=== PATIENT | female | born 2000 | race Caucasian/White ===

== ENCOUNTER 2023-09-29 12:40 | Emergency (ER) | payer MEDICAID, SELFPAY ==
[2023-09-29] VITALS (9 sets, daily range): BP systolic 101–135; BP diastolic 63–92; PULSE 75–99; RESP 16–18; TEMP 36.7–36.9; O2SAT 97–100; BMI 38.2
--- NOTE | 2023-09-29 12:53 | PC.NURSE ---
Dr. Rodriguez at [facility] for pt eval
[2023-09-29] MEDS: ONDANSETRON 4MG ODT 4 MG SL (13:12)
--- NOTE | 2023-09-29 13:15 | HMH.EDGENADL ---
Discharge Plan Disposition Patient Disposition: Home, Self-Care Prescriptions Prescriptions: New ondansetron 4 mg tablet,disintegrating 4 mg PO Q6H PRN (Reason: nausea and vomiting) Qty: 10 0RF Referrals Follow up/Referrals: Michael Russ MD [Primary Care Provider] - See instructions Clinical Impressions Clinical Impression: Vomiting and diarrhea Instructions Patient Instructions: DI for Diarrhea and Traveler's Diarrhea -- Adult, DI for Diarrhea and Traveler's Diarrhea -- Child, DI for Nausea -- Adult, DI for Nausea -- Child Discharge ED Provider: Frankie Rodriguez General Adult HPI General Chief complaint: Nausea/Vomiting/Diarrhea Stated complaint: Vomiting, acid reflux, abd pain, emotional Time Seen by Provider: 09/29/23 12:51 Mode of Arrival: Ambulatory Source of Information: Patient Limitations: No Limitations Description of Symptoms (Recalled from ER Triage Doc. by RN): n/v/d since sunday History of Present Illness HPI narrative: 23-year-old female presenting with vomiting and diarrhea. This has been going on for a couple of days. No known sick contacts. Nonbloody vomiting or diarrhea. Has not had a full meal in approximately 72 hours. No abdominal pain, there is a chance she may be . Please note that above description of symptoms, in this electronic medical record under categorization of recalled from ER triage doctor by RN are reflective of an initial nursing assessment, however, is not reflective of my full history and physical exam that was personally taken and clarified. Consequentially, this preceding description of symptoms, which may include the patient's categorized chief complaint in the EMR, do not reflect my personal clinical impression, and the ultimate description of history of present illness and patient stated complaints should be deferred to this section of the note. Unless stated otherwise or congruent with this section of the note, additional signs, symptoms, or incongruence should be interpreted as inaccurate with my clinical impression. Related Data Previous Rx's Medication Instructions Recorded ondansetron 4 mg disintegrating 4 mg PO Q6H PRN nausea and 09/29/23 tablet vomiting #10 tabs Allergies Allergy/AdvReac Type Severity Reaction Status Date / Time sulfamethoxazole Allergy Verified 09/29/23 13:11 [From Bactrim] trimethoprim [From Bactrim] Allergy Verified 09/29/23 13:[address] [facility] Disclaimer: The information contained in this section may have been updated after the patient was seen, as this information can be updated by other users. Social History Smoking Status: Never smoker alcohol intake: never current occupational status: employed Travel in the last 8 weeks: None ROS Obtained: Yes All systems reviewed & no additional complaints except as documented Physical Exam General General appearance: alert and in no apparent distress Head Head exam: atraumatic and normocephalic Eye Eye exam: Present normal appearance, PERRL and EOMI ENT ENT exam: Present mucous membranes moist Neck Neck exam: Present normal inspection, full ROM and trachea midline Respiratory Respiratory exam: Absent respiratory distress, wheezes, stridor, accessory muscle use or prolonged expiratory phase Cardiovascular Cardiovascular exam: Present normal rhythm Abdominal Exam Abdominal exam: Present soft; Absent distention, tenderness, guarding, rebound or rigidity Extremities Exam Extremities exam: Absent edema Neurological Exam Neurological exam: Present alert, oriented X3, CN II-XII intact and normal gait; Absent motor sensory deficit Skin Skin exam: Present warm and dry; Absent diaphoresis or erythema Medical Decision Making Medical Records Medical records reviewed: Yes I reviewed the patient's medical records. Kenn Inquiry Pt receiving controlled substance: No Kenn was queried for this patient: No Vital Signs: 09/29/23 12:43 09/29/23 13:11 09/29/23 13:30 Temperature 98.5 F Temperature Source Oral Pulse Rate 78 Pulse Rate [Left] 99 H Respiratory Rate 16 16 Blood Pressure 121/81 116/80 Blood Pressure [Left Arm] 122/81 Blood Pressure Mean 88 92 Blood Pressure Mean [Left Arm] 94 02 Sat by Pulse Oximetry 97 99 Oxygen Delivery Method Room Air 09/29/23 14:00 Temperature Temperature Source Pulse Rate 82 Pulse Rate [Left] Respiratory Rate 16 Blood Pressure 110/82 Blood Pressure [Left Arm] Blood Pressure Mean 88 Blood Pressure Mean [Left Arm] 02 Sat by Pulse Oximetry 98 Oxygen Delivery Method Lab Data Lab Results 09/29/23 13:00: Urine Color Yellow, Urine Appearance Clear, Urine pH 5.5, Ur Specific [place] >= 1.030, Urine Protein Negative, Urine Glucose (UA) Negative, Urine Ketones Negative, Urine Blood 2+, Urine Nitrate Negative, Urine Bilirubin Negative, Urine Urobilinogen 0.2, Ur Leukocyte Esterase Negative, Urine RBC 3-5, Urine WBC Occasional, Ur Squamous Epith Cells Occasional, Urine Bacteria Trace, Urine HCG, Qual Negative Orders (Tests/Meds): ED MEDICATIONS Discontinued Medications Generic Name Dose Route Start Last Admin Trade Name Juan Carlos PRN Reason Stop Dose Admin Ondansetron HCl 4 mg 09/29/23 12:51 09/29/23 13:12 Ondansetron 4mg Odt SL 09/29/23 12:52 4 mg ONCE ONE Administration ORDERS Category Date Time Status UA [Urinalysis and Microscopic] Stat Lab 09/29/23 13:00 Completed Urine , HCG Qual. Stat Lab 09/29/23 13:00 Completed Medical Decision Narrative: 23-year-old female presenting with vomiting and diarrhea. This has been going on for a couple of days. No known sick contacts. Nonbloody vomiting or diarrhea. Has not had a full meal in approximately 72 hours. No abdominal pain, there is a chance she may be . History was obtained via conversation with patient. On arrival, patient hemodynamically stable, alert, oriented x4, appropriate, GCS 15, moving all extremities spontaneously, pupils equal and reactive to light. Full physical exam performed and significant for well-appearing female no acute distress. Nonactionable physical exam overall, see above. Differential includes , gastritis, enteritis, gastroenteritis, among others Patient was given Zofran and p.o. challenge for symptomatic management and correction of underlying abnormalities. Workup independently interpreted and significant for negative UA, negative urine . On reevaluation, patient able to tolerate p.o. intake without issue. Given patient's history, physical exam, very well appearance, this most likely represents acute gastroenteritis. Because patient at baseline without signs or symptoms of clinical decompensation, deemed appropriate for discharge. Results were relayed to patient who voiced understanding and were agreeable to outpatient management and follow up. I discussed my clinical impression with patient and answered all questions. At this time, the evidence for any other entities in the differential is insufficient to warrant any further testing or ED observation. This was explained as well. Advisory was given that persistent or worsening symptoms require further evaluation. I confirmed the understanding of this discussion. Armament Mechanic disclaimer Much of this encounter note is an electronic enterprise systems manager spoken language to printed text. Electronic enterprise systems manager of the spoken language may permit errors. Although I have reviewed the note, some errors may still exist. Critical Care Critical Care Time Critical Care Time: No
[2023-09-29 13:22] LABS: Microscopic, Urine URINE MICROSCOPIC (MICROSCOPIC)
[2023-09-29 13:23] LABS: Appearance,Urine CLEAR (Clear); Bilirubin,Urine Negative (Negative); Blood, Urine 2+ (Negative); Color,Urine YELLOW (Yellow); Glucose,Urine (UA) Negative (Negative); Ketones,Urine Negative (Negative); Leukocyte Esterase,Urine Negative (Negative); Nitrate,Urine Negative (Negative); PH,Urine 5.5 (5.0-8.5); Protein,Urine Negative (Negative); Specific Gravity, Urine >= 1.030 (1.005-1.030); Urobilinogen,Urine 0.2 EU/dl (0.2)
[2023-09-29 13:25] LABS: Urine Pregnancy, HCG Qual. Negative (Negative)
[2023-09-29 13:41] LABS: Bacteria,Urine Trace /lpf; Squamous Epithelial Cell,Urine Occasional #/hpf (0-5); WBC,Urine Occasional #/hpf (0-3)
[2023-09-29] MEDS: PROMETHAZINE HCL 25MG/ML 1ML VIAL 25 MG IV (15:38)
[2023-09-29] MEDS: LACTATED RINGERS 1000ML 1,000 ML 999 ML IV (15:38)
[2023-09-29] MEDS: SODIUM CHLORIDE 0.9% 25ML BAG 25 ML IV (15:38)
--- NOTE | 2023-09-29 16:36 | PC.NURSE ---
PT HAD A PO CHALLENGE WITH NO PROBLEMS
== END 2023-09-29 16:41 | disposition home or self-care (01) ==
PROVIDERS: Emergency Medicine; Emergency Provider Emergency Medicine; PCP Family Medicine
DX: R11.2 Nausea with vomiting, unspecified; R19.7 Diarrhea, unspecified
CPT/HCPCS: 81001; 81025; 96361; 96374; 99284

== ENCOUNTER 2024-02-03 11:36 | Emergency (ER) | payer MEDICAID, SELFPAY ==
[2024-02-03 11:36] VITALS: BP 151/91; PULSE 101; RESP 18; TEMP 36.7; O2SAT 99; BMI 41.5
[2024-02-03] MEDS: predniSONE 20MG TAB 50 MG PO (11:57)
[2024-02-03] MEDS: diphenhydrAMINE 50MG CAPSULE 50 MG PO (11:57)
[2024-02-03] MEDS: PANTOPRAZOLE 40MG TABLET 40 MG PO (11:58)
[2024-02-03 12:27] VITALS: BP 126/76; PULSE 80; RESP 16; O2SAT 99
--- NOTE | 2024-02-03 12:42 | HMH.EDGENADL ---
Discharge Plan Disposition Patient Disposition: Home, Self-Care Prescriptions Prescriptions: New prednisone 50 mg tablet 50 mg PO DAILY 3 Days Qty: 3 0RF epinephrine 0.3 mg/0.3 mL auto-injector 0.3 mg IM Q10M PRN (Reason: anaphylaxis) Qty: 2 0RF Rx Instructions: for 2 doses No Action promethazine 25 mg tablet 25 mg PO TID PRN (Reason: nausea and vomiting) Qty: 12 0RF Referrals Follow up/Referrals: Provider,Referral, MD [Primary Care Provider] - See instructions Activity Restrictions/Add. Instructions Additional Instructions/Restrictions: At this time it was felt you are safe to be discharged home. If new or worsening symptoms please do not hesitate to return the emergency department. Please take your medications as prescribed. If your airway is closing use your EpiPen. Clinical Impressions Clinical Impression: Allergic reaction Print Language Print Language: Persian Discharge ED Provider: Shaquille Macedo General Adult HPI General Chief complaint: Allergic Reaction Stated complaint: allergic reaction Time Seen by Provider: 02/03/24 11:50 Mode of Arrival: Ambulatory Source of Information: Patient Limitations: No Limitations Description of Symptoms (Recalled from ER Triage Doc. by RN): PT REPORTS ALLERGIC REACTION TO CINNAMON. REPORTS THROAT ITCHY. NO RESPIRATORY DISTRESS. 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 Patient has had an itchy throat and she was exposed to cinnamon at 5 this morning when she was on her way into work. There is associated shortness of breath. No other acute complaints at this time. Related Data Previous Rx's ?Medication ?Instructions ?Recorded promethazine 25 mg tablet 25 mg PO TID PRN nausea and 09/29/23 vomiting #12 tabs epinephrine 0.3 mg/0.3 mL 0.3 mg (0.3 mL) IM Q10M PRN 02/03/24 injection, auto-injector anaphylaxis #2 ea prednisone 50 mg tablet 50 mg PO DAILY 3 days #3 tabs 02/03/24 Allergies Allergy/AdvReac Type Severity Reaction Status Date / Time cinnamon Allergy Anaphylaxis Verified 02/03/24 11:57 raspberry Allergy Anaphylaxis Verified 02/03/24 11:57 sulfamethoxazole Allergy Unknown Verified 02/03/24 11:57 [From Bactrim] allergy reaction trimethoprim [From Bactrim] Allergy Unknown Verified 02/03/24 11:57 allergy reaction PFSH [facility] Disclaimer: The information contained in this section may have been updated after the patient was seen, as this information can be updated by other users. Social History (Updated 09/29/23 @ 15:09 by Frankie Rodriguez MD) Smoking Status: Never smoker alcohol intake: never current occupational status: employed Travel in the last 8 weeks: None ROS Obtained: Yes Systems reviewed as appropriate & no additional complaints except as documented Physical Exam General General appearance: alert and in no apparent distress Head Head exam: atraumatic and normocephalic Eye Eye exam: Present PERRL ENT ENT exam: Present mucous membranes moist Neck Neck exam: Present normal inspection Chest Chest inspection: Present normal inspection and symmetric chest wall rise Respiratory Respiratory exam: Present normal lung sounds bilaterally; Absent respiratory distress or wheezes Cardiovascular Cardiovascular exam: Present regular rate and normal rhythm Abdominal Exam Abdominal exam: Present soft Extremities Exam Extremities exam: Present normal inspection Neurological Exam Neurological exam: Present alert Psychiatric Psychiatric exam: Present normal affect Skin Skin exam: Present warm and dry; Absent rash Medical Decision Making Medical Records Screening: Per USPSTF and CDC recommendations, given the prevalence of disease in our region, it is our hospital?s policy to screen for HIV and viral Hepatitis for all patients aged 18 and over and those with ongoing risk factors. Kenn Inquiry Pt receiving controlled substance: No Vital Signs: 02/03/24 11:36 02/03/24 12:27 Temperature 98.0 F Temperature Source Oral Pulse Rate 80 Pulse Rate [Radial] 101 H Respiratory Rate 18 16 Blood Pressure 126/76 Blood Pressure [Left Arm] 151/91 H Blood Pressure Mean [Left Arm] 111 Blood Pressure Source Automatic Cuff Blood Pressure Source [Left Arm] Automatic Cuff Blood Pressure Position Supine Blood Pressure Position [Left Arm] Sitting 02 Sat by Pulse Oximetry 99 99 Oxygen Delivery Method Room Air Room Air Orders (Tests/Meds): ED MEDICATIONS Discontinued Medications Generic Name Dose Route Start Last Admin Trade Name Freq PRN Reason Stop Dose Admin Diphenhydramine HCl 50 mg 02/03/24 11:53 02/03/24 11:57 Diphenhydramine 50mg Capsule PO 02/03/24 11:54 50 mg ONCE ONE Administration Pantoprazole Sodium 40 mg 02/03/24 11:53 02/03/24 11:58 Pantoprazole 40mg Tablet PO 02/03/24 11:54 40 mg ONCE ONE Administration Prednisone 50 mg 02/03/24 11:53 02/03/24 11:57 Prednisone 20mg Tab PO 02/03/24 11:54 50 mg ONCE ONE Administration Medical Decision Narrative: In summary patient is a previous healthy 19-year-old with allergy to cinnamon presents emergency department for symptoms related cinnamon exposure. Patient does not meet criteria for anaphylaxis upon arrival, she does not have rash, no wheezing. She has an itchy throat which may be reflective of mild allergic reaction. Given this patient will be given pantoprazole, prednisone, diphenhydramine. The patient was placed in observation status at 1213. Medical necessity for observational status is serial physical exams. The patient was provided serial reevaluations while awaiting results. Results of observation remarkable for no progressive symptoms. Given this I feel the patient is appropriate for outpatient management at this time will be discharged with a course of steroids and EpiPen in case anaphylaxis were to present with a worsening reaction in the future to exposure to sentiment. Total time in observation 30 minutes. Critical Care Critical Care Time Critical Care Time: No
[2024-02-03 12:44] VITALS: BP 132/74; PULSE 68; RESP 18; TEMP 36.9; O2SAT 99
== END 2024-02-03 12:47 | disposition home or self-care (01) ==
PROVIDERS: Emergency Provider Emergency Medicine
DX: T78.1XXA Other adverse food reactions, not elsewhere classified, initial encounter (principal); R06.02 Shortness of breath
CPT/HCPCS: 99285

== ENCOUNTER 2024-04-06 20:00 | Emergency (ER) | payer MEDICAID, SELFPAY ==
[2024-04-06 20:02] VITALS: BP 147/99; PULSE 100; RESP 18; TEMP 36.6; O2SAT 100; BMI 34.9
--- OUTSIDE RECORDS SUMMARY | 2024-04-06 20:14 | XMS_ITS | Encounter Summary ---
Author Organization [facility] nter Address [address] [place] [address] [facility] [place] [address] Care Team Providers Care Nursing Education Specialist Name Role Phone Robles House MD Primary Care Provider [phone] Encounter Details Date Type Department Care Team (Latest Contact Info) Description 12/02/2018 12:18 PM EDT - 12/02/2018 11:59 PM EDT Hospital Encounter [facility] CON[facility] OUTPATIENT [address] [place] [address] Robles House MD [address] [facility] [place] [address] Procedure and treatment not carried out, unspecified reason Discharge Disposition: Home or Self Care Social History Tobacco Use Types Packs/Day Years Used Date Smoking Tobacco: Never Assessed Sex and Gender Information Value Date Recorded Sex Assigned at Female 07/20/2021 10:53 AM EST Gender Identity Not on file Sexual Orientation Not on file documented as of this encounter Plan of Treatment Not on file documented as of this encounter Visit Diagnoses Diagnosis Procedure and treatment not carried out, unspecified reason documented in this encounter Care Teams Nursing Education Specialist Relationship Specialty Start Date End Date Robles House MD [address] [place] [address] PCP - General 01/18/22 documented as of this encounter
--- OUTSIDE RECORDS SUMMARY | 2024-04-06 20:14 | XMS_ITS | Encounter Summary ---
Author Organization [facility] nter Address [address] [place] [address] Care Team Providers Care Drop Wire Builder Name Role Phone Robles House MD Primary Care Provider [phone] Encounter Details Date Type Department Care Team (Latest Contact Info) Description 12/02/2018 12:23 PM EDT - 12/02/2018 11:59 PM EDT Hospital Encounter [facility] CONVERSION OUTPATIENT [address] [place] [address] Robles House MD [address] [place] [address] Other fatigue Discharge Disposition: Home or Self Care Social History Tobacco Use Types Packs/Day Years Used Date Smoking Tobacco: Never Assessed Sex and Gender Information Value Date Recorded Sex Assigned at Female 07/20/2021 10:53 AM EST Gender Identity Not on file Sexual Orientation Not on file documented as of this encounter Plan of Treatment Not on file documented as of this encounter Procedures Procedure Name Priority Date/Time Associated Diagnosis Comments TSH Routine 12/02/2018 12:40 PM EDT T4 Routine 12/02/2018 12:40 PM EDT SCANNED LAB RESULT 12/02/2018 documented in this encounter Results * TSH (12/02/2018 12:40 PM EDT) TSH 1.630 0.463 - 3.980 ulU/ml 12/02/2018 7:57 PM EDT [facility] 12/02/2018 12:4 0 PM EDT 12/02/2018 6:32 PM EDT Robles House MD LAB BLOOD ORDERABLES Performing Organization Address City/[facility]/ZIP Co de Phone Number [facility] [address] [place] [address], * (ABNORMAL) T4 (12/02/2018 12:40 PM EDT) T4, Total 11.7(H) 6.0 - 11.6 ug/dL 12/02/2018 7:57 PM EDT [facility] 12/02/2018 12:4 0 PM EDT 12/02/2018 6:32 PM EDT Robles House MD LAB BLOOD ORDERABLES Performing Organization Address [facility] Co de Phone Number [facility] [address] [place] [address], * SCANNED LAB RESULT (12/02/2018) Narrative 12/02/2018 Ordered by an unspecified provider. Default Authenticator Stefano LAB BLOOD ORDE RABLATASHA documented in this encounter Visit Diagnoses Diagnosis Other fatigue documented in this encounter Care Teams Drop Wire Builder Relationship Specialty Start Date End Date Robles House MD [address] [place] [id number] PCP - General 01/18/22 documented as of this encounter
--- OUTSIDE RECORDS SUMMARY | 2024-04-06 20:14 | XMS_ITS | Encounter Summary ---
Author Organization [facility] nter Address [address] [place] [id number] [place] [address] Care Team Providers Care Clinical Coordinator Name Role Phone Robles House MD Primary Care Provider [phone] Encounter Details Date Type Department Care Team (Latest Contact Info) Description 10/07/2018 2:44 PM EDT - 10/07/2018 11:59 PM EDT Hospital Encounter [facility] CONVERSION OUTPATIENT [address] [place] [address] Robles House MD [address] [place] [address] Unspecified abdominal pain Discharge Disposition: Home or Self Care Social [...] Procedure Name Priority Date/Time Associated Diagnosis Comments SCANNED LAB RESULT 10/07/2018 documented in this encounter Results * SCANNED LAB RESULT (10/07/2018) Narrative 10/07/2018 Ordered by an unspecified provider. Default Authenticator Stefano LAB BLOOD ORDNatalie HARRELL documented in this encounter Visit Diagnoses Diagnosis Unspecified abdominal pain documented in this encounter Care Teams Clinical Coordinator Relationship Specialty Start Date End Date Robles House MD [address] [place] [phone] PCP - General 01/18/22 documented as of this encounter
--- OUTSIDE RECORDS SUMMARY | 2024-04-06 20:14 | XMS_ITS | Encounter Summary ---
Author Organization [facility] nter Address [address] [place] [address] Care Team Providers Care Pocket Creaser Name Role Phone Robles House MD Primary Care Provider [phone] Encounter Details Date Type Department Care Team (Late st Contact Info) Description 05/01/2018 12:01 AM EST - 05/01/2018 11:59 PM EST Hospital Encounter [facility] CONVERSION OUTPATIENT [address] [place] [address] Aditya Sevilla MD [facility] [address] [place] [address] Social History Tobacco Use Types Packs/Day Years Used Date Smoking Tobacco: Never Assessed Sex and Gender Information Value Date Recorded Sex Assigned at Female 07/20/2021 10:53 AM EST Gender Identity Not on file Sexual Orientation Not on file documented as of this encounter Plan of Treatment Not on file documented as of this encounter Procedures Procedure Name Priority Date/Time Associated Diagnosis Comments NM HEPATOBILIARY W CHOLECYSTOKININ Routine 05/01/2018 1:37 PM EST documented in this encounter Results * NM hepatobiliary w cholecystokinin (05/01/2018 1:37 PM EST) Anatomical Region Laterality Modality Body Nuclear Medicine 05/01/2018 1:37 PM EST Narrative 05/01/2018 4:08 PM EST PROCEDURE: NM CCK HEPATOBILIARY SCAN: 05/01/2018 CLINICAL INFORMATION: abdominal pain COMPARISON: CT abdomen and pelvis 04/27/2018, gallbladder ultrasound 04/27/2018. Multiple anterior projections of the abdomen were obtained after administration of 4.7 mCi technetium 99m labeled mebrofenin. ??Additional images were obtained after one Ensure for calculation of gallbladder ejection fraction. Prompt hepatic uptake of radiotracer from the blood pool. There is radiotracer activity noted within the biliary system on 5 minute imaging. There is radiotracer activity noted within the gallbladder on 10 minute imaging. There is radiotracer progressed into small bowel on 20 minute imaging. There is progressive clearance of radiotracer from hepatic parenchyma throughout exam. ??Gallbladder ejection fraction calculated at 77%. Impression: 1. No evidence of acute cholecystitis. 2. Gallbladder ejection fraction calculated at 77%. Procedure Note Patel Hopkins MD - 07/29/2021 PROCEDURE: NM CCK HEPATOBILIARY SCAN: 05/01/2018 CLINICAL INFORMATION: abdominal pain COMPARISON: CT abdomen and pelvis 04/27/2018, gallbladder [id number]/15/[id number]. Multiple anterior projections of the abdomen were obtained afteradministration of 4.7 mCi technetium 99m labeled mebrofenin. Additional images were obtained after one Ensure for calculation ofgallbladder ejection fraction. Prompt hepatic uptake of radiotracer from the blood pool. There isradiotracer activity noted within the biliary system on 5 minute imaging.There is radiotracer activity noted within the gallbladder on 10 minuteimaging. There is radiotracer progressed into small bowel on 20 minuteimaging. There is progressive clearance of radiotracer from hepaticparenchyma throughout exam. Gallbladder ejection fraction calculated at 77%. Impression: 1. No evidence of acute cholecystitis. 2. Gallbladder ejection fraction calculated at 77%. Aditya Sevilla MD IMG NM PROCEDURES documented in this encounter Visit Diagnoses Not on filedocumented in this encounter Care Teams Pocket Creaser Relationship Specialty Start Date End Date Robles House MD [address] [place] [phone] PCP - General 01/18/22 documented as of this encounter
--- OUTSIDE RECORDS SUMMARY | 2024-04-06 20:14 | XMS_ITS | Encounter Summary ---
Author Organization [facility] nter Address [address] [place] [id number] [place] [address] Care Team Providers Care Three Knife Trimmer Name Role Phone Robles House MD Primary Care Provider [phone] Encounter Details Date Type Department Care Team (Latest Contact Info) Description 08/30/2018 4:13 PM EDT - 08/30/2018 11:59 PM EDT Hospital Encounter [facility] CONVERSION OUTPATIENT [address] [place] [address] Fortino Cisneros, DO [address] [place] [phone] Urinary tract infection, site not specified; Nausea Discharge Disposition: Home or Self Care Social History Tobacco Use Types Packs/Day Years Used Date Smoking Tobacco: Never Assessed Sex and Gender Information Value Date Recorded Sex Assigned at Female 07/20/2021 10:53 AM EST Gender Identity Not on file Sexual Orientation Not on file documented as of this encounter Plan of Treatment Not on file documented as of this encounter Visit Diagnoses Diagnosis Urinary tract infection, site not specified Nausea Nausea alone documented in this encounter Care Teams Three Knife Trimmer Relationship Specialty Start Date End Date Robles House MD [address] [place] [address] PCP - General 01/18/22 documented as of this encounter
--- OUTSIDE RECORDS SUMMARY | 2024-04-06 20:14 | XMS_ITS | Encounter Summary ---
Author Organization [facility] nter Address [address] [place], [place] [id number] [place] [address] Care Team Providers Care Road Maker Name Role Phone Robles House MD Primary Care Provider Encounter Details Date Type Department Care Team (Latest Contact Info) Description 05/13/2018 5:14 PM EST - 05/13/2018 11:59 PM EST Hospital Encounter [facility] CONVERSION OUTPATIENT [address] [place] [id number] Jason Moreno DO [address] [facility] [place] [address] Cellulitis of right external ear Discharge Disposition: Home or Self Care Social History Tobacco Use Types Packs/Day Years Used Date Smoking Tobacco: Never Assessed Sex and Gender Information Value Date Recorded Sex Assigned at Female 07/20/2021 10:53 AM EST Gender Identity Not on file Sexual Orientation Not on file documented as of this encounter Plan of Treatment Not on file documented as of this encounter Visit Diagnoses Diagnosis Cellulitis of right external ear documented in this encounter Care Teams Road Maker Relationship Specialty Start Date End Date Robles Houes MD [address] [place] [address] PCP - General 01/18/22 documented as of this encounter
--- OUTSIDE RECORDS SUMMARY | 2024-04-06 20:14 | XMS_ITS | Encounter Summary ---
Author Organization [facility] nter Address [address] [place] [address] Care Team Providers Care Product Manager Medical Device Name Role Phone Robles House MD Primary Care Provider [phone] Encounter Details Date Type Department Care Team (Late st Contact Info) Description 10/08/2018 8:42 AM EDT - 10/08/2018 11:59 PM EDT Hospital Encounter PMC CONVERSION OUTPATIENT [address] [place] [address] Gertrude Pozo DO [address] [place] [address] Robles House MD [address] [place] [address] Social History Tobacco Use Types Packs/Day Years Used Date Smoking Tobacco: Never Assessed Sex and Gender Information Value Date Recorded Sex Assigned at Female 07/20/2021 10:53 AM EST Gender Identity Not on file Sexual Orientation Not on file documented as of this encounter Plan of Treatment Not on file documented as of this encounter Procedures Procedure Name Priority Date/Time Associated Diagnosis Comments CBC WITH AUTO DIFFERENTIAL Routine 10/08/2018 8:59 AM EDT VITAMIN D, TOTAL Routine 10/08/2018 8:59 AM EDT URINALYSIS WITH MICROSCOPIC Routine 10/08/2018 8:59 AM EDT URINE CULTURE Routine 10/08/2018 8:59 AM EDT TSH Routine 10/08/2018 8:59 AM EDT T4 Routine 10/08/2018 8:59 AM EDT VITAMIN B12 Routine 10/08/2018 8:59 AM EDT COMPREHENSIVE METABOLIC PANEL Routine 10/08/2018 8:59 AM EDT SCANNED LAB RESULT 10/08/2018 SCANNED LAB RESULT 10/08/2018 SCANNED LAB RESULT 10/08/2018 SCANNED LAB RESULT 10/08/2018 documented in this encounter Results * Urine culture (10/08/2018 8:59 AM EDT) Urine Culture FINAL >100,000 CFU/ML OF MIXED SKIN LEIDA 10/10/2018 7:25 AM EDT [facility] 10/08/2018 8:59 AM EDT 10/08/2018 9:33 AM EDT Gertrude Pozo DO LAB MICROBIOLOGY - GENERAL ORDERABLES Performing Organization Address City/State/[facility] Co de Phone Number [facility] [address] * (ABNORMAL) Urinalysis with microscopic (10/08/2018 8:59 AM EDT) RBC, Urine 4 0 - 4 /hpf 10/08/2018 9:31 AM EDT [facility] WBC, Urine 2 0 - 5 /hpf 10/08/2018 9:31 AM EDT [facility] Squamous Epithelial, Urine 5 0 - 6 /hpf 10/08/2018 9:31 AM EDT [facility] Bacteria, Urine NEGATIVE /hpf 10/08/2018 9:31 AM EDT [facility] Hyaline Casts, Urine 1 0 - 4 /lpf 10/08/2018 9:31 AM EDT [facility] Color, Urine YELLOW 10/08/2018 9:31 AM EDT [facility] Clarity, Urine CLEAR 10/08/2018 9:31 AM [facility] Glucose, Urine NEGATIVE mg/dL 10/08/2018 9:31 AM [facility] Bilirubin, Urine NEGATIVE 10/08/2018 9:31 AM [facility] Specific [place] [employer], Urine 1.022 1.006 - 1.035 10/08/2018 9:31 AM [facility] Blood, Urine NEGATIVE 10/08/2018 9:31 AM [facility] pH, Urine 5.0 5.0 - 9.0 10/08/2018 9:31 AM [facility] Protein, Urine NEGATIVE mg/dL 10/08/2018 9:31 AM [facility] Urobilinogen, Urine 0.2 E.U./DL 10/08/2018 9:31 AM [facility] Nitrite, Urine NEGATIVE 10/08/2018 9:31 AM [facility] Leukocytes, Urine TRACE(A) 10/08/2018 9:31 AM [facility] 10/08/2018 8:59 AM EDT 10/08/2018 9:17 AM EDT Gertrude Pozo DO LAB URINE ORDERABL ES [facility] [address] * CBC auto differential (10/08/2018 8:59 AM EDT) Platelets 376 122 - 454 K/ul 10/08/2018 9:38 AM [facility] RBC 4.480 3.450 - 5.400 M/ul 10/08/2018 9:38 AM [facility] MCV 90.8 78.2 - 101.8 fl 10/08/2018 9:38 AM [facility] MCH 30.3 26.4 - 33.3 pg 10/08/2018 9:38 AM [facility] MCHC 33.3 32.5 - 35.3 g/dL 10/08/2018 9:38 AM [facility] RDW 12.9 10.1 - 16.2 % 10/08/2018 9:38 AM [facility] MPV 8.4 6.4 - 10.4 fl 10/08/2018 9:38 AM [facility] Neutrophils % 56.4 43.0 - 83.0 % 10/08/2018 9:38 AM [facility] Neutrophils Absolute 5.4 2.7 - 6.9 K/ul 10/08/2018 9:38 AM [facility] Auto WBC 9.50 3.00 - 11.30 K/ul 10/08/2018 9:38 AM [facility] nRBC 0.00 10/08/2018 9:38 AM [facility] Basophils % 0.7 0.0 - 2.0 % 10/08/2018 9:38 AM [facility] Basophils Absolute 0.1 0.0 - 0.2 K/ul 10/08/2018 9:38 AM [facility] Eosinophils % 4.3 0.0 - 9.0 % 10/08/2018 9:38 AM [facility] Eosinophils Absolute 0.4 0.0 - 0.9 K/ul 10/08/2018 9:38 AM [facility] Lymphocytes % 32.7 10.0 - 42.0 % 10/08/2018 9:38 AM [facility] Lymphocytes Absolute 3.1 0.4 - 3.9 K/ul 10/08/2018 9:38 AM [facility] Monocytes % 5.9 1.0 - 14.0 % 10/08/2018 9:38 AM [facility] Monocytes Absolute 0.6 0.2 - 0.9 K/ul 10/08/2018 9:38 AM [facility] Hematocrit 40.7 29.9 - 45.5 % 10/08/2018 9:38 AM [facility] Hemoglobin 13.6 10.0 - 16.0 gm/dl 10/08/2018 9:38 AM [facility] 10/08/2018 8:59 AM EDT 10/08/2018 9:22 AM EDT Robles House MD LAB BLOOD ORDERABLES [facility] [address] * Vitamin B12 (10/08/2018 8:59 AM EDT) Vitamin B-12 503 254 - 1,320 pg/mL 10/08/2018 10:16 AM EDT [facility] 10/08/2018 8:59 AM EDT 10/08/2018 9:21 AM EDT Robles House MD LAB BLOOD ORDERABLES Performing Organization Address [facility] Phone Number [facility] [address] [place] [address], * (ABNORMAL) TSH (10/08/2018 8:59 AM EDT) TSH 4.130(H) 0.463 - 3.980 ulU/ml 10/08/2018 10:16 AM EDT [facility] 10/08/2018 8:59 AM EDT 10/08/2018 9:21 AM EDT Robles House MD LAB BLOOD ORDERABLES Performing Organization Address [facility] Phone [facility] [place] [address], * (ABNORMAL) T4 (10/08/2018 8:59 AM EDT) T4, Total 12.3(H) 6.0 - 11.6 ug/dL 10/08/2018 10:16 AM EDT [facility] 10/08/2018 8:59 AM EDT 10/08/2018 9:21 AM EDT Robles House MD LAB BLOOD ORDERABLES Performing Organization Address [facility] Phone Number [facility] [address] [place] [address], * (ABNORMAL) Vitamin D 25 hydroxy (10/08/2018 8:59 AM EDT) VITAMIN D, 25-HYDROXY 16.8(L) 30.0 - 100.0 ng/mL 10/08/2018 10:38 AM EDT [facility] 10/08/2018 8:59 AM EDT 10/08/2018 9:21 AM EDT Robles House MD LAB BLOOD ORDERABLES [facility] [address] * Comprehensive metabolic panel (10/08/2018 8:59 AM EDT) Globulin, Total 3.9 2.4 - 4.8 g/dL 10/08/2018 10:16 AM [facility] A/G Ratio 1.0 0.6 - 1.6 10/08/2018 10:16 AM [facility] Calcium 8.9 8.5 - 10.1 MG/DL 10/08/2018 10:16 AM [facility] Chloride 104 98 - 107 mmol/L 10/08/2018 10:16 AM [facility] CO2 27 21 - 32 mmol/L 10/08/2018 10:16 AM [facility] Creatinine 0.80 0.60 - 1.30 MG/DL 10/08/2018 10:16 AM [facility] Potassium 4.0 3.6 - 5.2 mmol/L 10/08/2018 10:16 AM [facility] Sodium 139 133 - 144 mmol/L 10/08/2018 10:16 AM [facility] Albumin 3.9 3.4 - 5.0 g/dL 10/08/2018 10:16 AM [facility] Alkaline Phosphatase 72 45 - 117 U/L 10/08/2018 10:16 AM [facility] Total Bilirubin 0.30 0.00 - 1.00 MG/DL 10/08/2018 10:16 AM [facility] ALT (SGPT) 58 12 - 78 U/L 10/08/2018 10:16 AM [facility] Total Protein 7.8 6.4 - 8.4 g/dL 10/08/2018 10:16 AM [facility] AST 23 15 - 37 U/L 10/08/2018 10:16 AM [facility] BUN 10 7 - 18 MG/DL 10/08/2018 10:16 AM [facility] Glucose 101 70 - 110 MG/DL 10/08/2018 10:16 AM [facility] 10/08/2018 8:59 AM EDT 10/08/2018 9:21 AM EDT Robles House MD LAB BLOOD ORDERABLES [facility] [address] * SCANNED LAB RESULT (10/08/2018) Narrative 10/08/2018 Ordered by an unspecified provider. Default Authenticator Stefano LAB BLOOD ORDE RABLES * SCANNED LAB RESULT (10/08/2018) Narrative 10/08/2018 Ordered by an unspecified provider. Default Authenticator Stefano LAB BLOOD ORDE RABLES * SCANNED LAB RESULT (10/08/2018) Narrative 10/08/2018 Ordered by an unspecified provider. Default Authenticator Stefano LAB BLOOD ORDE RABLES * SCANNED LAB RESULT (10/08/2018) Narrative 10/08/2018 Ordered by an unspecified provider. Default Authenticator Stefano LAB BLOOD ORDE RABLES documented in this encounter Visit Diagnoses Not on filedocumented in this encounter Care Teams Product Manager Medical Device Relationship Specialty Start Date End Date Robles House MD [address] [place] [address] [place] [address] PCP - General 01/18/22 documented as of this encounter
--- OUTSIDE RECORDS SUMMARY | 2024-04-06 20:14 | XMS_ITS | Clinical Summary ---
Author Organization [facility] nter Address [address] [place] [address] Care Team Providers Care Business Process Consultant Name Role Phone Unavailable Primary Care Provider Unavailabl e Social History Tobacco Use Types Packs/Day Years Used Date Smoking Tobacco: Never Assessed Sex and Gender Information Value Date Recorded Sex Assigned at Female 07/20/2021 10:53 AM EST Gender Identity Not on file Sexual Orientation Not on file Plan of Treatment Not on file
--- OUTSIDE RECORDS SUMMARY | 2024-04-06 20:14 | XMS_ITS | Encounter Summary ---
Author Organization [facility] nter Address [address] [place], [place] [address] [place] [address] Care Team Providers Care Product Marketing Engineer Name Role Phone Robles House MD Primary Care Provider [phone] Encounter Details Date Type Department Care Team (Late st Contact Info) Description 08/30/2018 4:18 PM EDT - 08/30/2018 11:59 PM EDT Hospital Encounter PMC CONVERSION OUTPATIENT [address] [place] [address] Fortino Cisneros, DO [address] [place] [phone] Social History Tobacco Use Types Packs/Day Years Used Date Smoking Tobacco: Never Assessed Sex and Gender Information Value Date Recorded Sex Assigned at Female 07/20/2021 10:53 AM EST Gender Identity Not on file Sexual Orientation Not on file documented as of this encounter Plan of Treatment Not on file documented as of this encounter Visit Diagnoses Not on filedocumented in this encounter Care Teams Product Marketing Engineer Relationship Specialty Start Date End Date Robles House MD [address] [place] [address] PCP - General 01/18/22 documented as of this encounter
--- OUTSIDE RECORDS SUMMARY | 2024-04-06 20:14 | XMS_ITS | Encounter Summary ---
Author Organization [facility] nter Address [address] [place] [address] [place] [facility] Care Team Providers Care Pt Sitter Name Role Phone Robles House MD Primary Care Provider [phone] Encounter Details Date Type Department Care Team (Latest Contact Info) Description 04/30/2018 1:40 PM EST - 04/30/2018 11:59 PM EST Hospital Encounter [facility]C CONVERSION OUTPATIENT [address] [place] [address] Aditya Sevilla MD [facility] CLINIC [facility]LD[facility] 2ND FLOOR [address] [place] [facility] Unspecified abdominal pain Discharge Disposition: Home or [...] as of this encounter Visit Diagnoses Diagnosis Unspecified abdominal pain documented in this encounter Care Teams Pt Sitter Relationship Specialty Start Date End Date Robles House MD [address] [place] [phone] PCP - General 01/18/22 documented as of this encounter
--- OUTSIDE RECORDS SUMMARY | 2024-04-06 20:14 | XMS_ITS | Referral Summary ---
Author Organization [facility] nter Address [address] [place] [address] Care Team Providers Care Letter Sorting Machine Operator Name Role Phone Unavailable Primary Care Provider Unavailabl e Social History Tobacco Use Types Packs/Day Years Used Date Smoking Tobacco: Never Assessed Sex and Gender Information Value Date Recorded Sex Assigned at Female 07/20/2021 10:53 AM EST Gender Identity Not on file Sexual Orientation Not on file Plan of Treatment Not on file
--- OUTSIDE RECORDS SUMMARY | 2024-04-06 20:14 | XMS_ITS | Encounter Summary ---
Author Organization [facility] nter Address [address] [place] [address] [place] [facility] Care Team Providers Care Paediatric Thoracic Physician Name Role Phone Robles House MD Primary Care Provider [phone] Encounter Details Date Type Department Care Team (Latest Contact Info) Description 05/02/2018 2:49 PM EST - 05/02/2018 11:59 PM EST Hospital Encounter PMC CONVERSION OUTPATIENT [address] [place] [facility] [phone] Aditya Sevilla MD [facility] CLINIC [facility]LDG 2ND FLOOR [address] [place] [facility] Unspecified abdominal pain Discharge Disposition: Home or [...] pain documented in this encounter Care Teams Paediatric Thoracic Physician Relationship Specialty Start Date End Date Robles House MD [address] [place] [phone] PCP - General 01/18/22 documented as of this encounter
--- OUTSIDE RECORDS SUMMARY | 2024-04-06 20:14 | XMS_ITS | Encounter Summary ---
Author Organization [facility] nter Address [address] [place], [place] [address] [place] [address] Care Team Providers Care Trimmer Sawyer Name Role Phone Robles House MD Primary Care Provider [phone] Encounter Details Date Type Department Care Team (Latest Contact Info) Description 10/02/2018 2:02 PM EDT - 10/02/2018 11:59 PM EDT Hospital Encounter PMC CONVERSION OUTPATIENT [address] [place] [address] Robles House MD [address] [place] [address] Unspecified abdominal pain; Dizziness and giddiness; Other fatigue Discharge Disposition: Home or Self [...] encounter Visit Diagnoses Diagnosis Unspecified abdominal pain Dizziness and giddiness Other fatigue documented in this encounter Care Teams Trimmer Sawyer Relationship Specialty Start Date End Date Robles House MD [address] [place] [phone] PCP - General 01/18/22 documented as of this encounter
--- OUTSIDE RECORDS SUMMARY | 2024-04-06 20:14 | XMS_ITS | Encounter Summary ---
Author Organization [facility] nter Address [address] [place] [address] Care Team Providers Care Fence Installer Foreman Name Role Phone Robles House MD Primary Care Provider [phone] Encounter Details Date Type Department Care Team (Late st Contact Info) Description 08/30/2018 6:50 PM EDT - 08/30/2018 11:59 PM EDT Hospital Encounter PMC CONVERSION OUTPATIENT [address] [place] [address] Fortino Cisneros, [address] [place] [address] Social History Tobacco Use Types Packs/Day Years Used Date Smoking Tobacco: Never Assessed Sex and Gender Information Value Date Recorded Sex Assigned at Female 07/20/2021 10:53 AM EST Gender Identity Not on file Sexual Orientation Not on file documented as of this encounter Plan of Treatment Not on file documented as of this encounter Procedures Procedure Name Priority Date/Time Associated Diagnosis Comments URINE CULTURE Routine 08/30/2018 3:30 PM EDT SCANNED LAB RESULT 08/30/2018 documented in this encounter Results * Urine culture (08/30/2018 3:30 PM EDT) Urine Culture FINAL >100,000 CFU/ML OF MIXED SKIN LEIDA 09/01/2018 6:24 AM EDT [facility] 08/30/2018 3:30 PM EDT 08/30/2018 7:14 PM EDT Maleshea Cisneros DO LAB MICROBIOLOGY - G ENERAL ORDERABLES [facility] [address] [place] [address], * SCANNED LAB RESULT (08/30/2018) Narrative 08/30/2018 Ordered by an unspecified provider. Default Authenticator Stefano LAB BLOOD ORDNatalie HARRELL documented in this encounter Visit Diagnoses Not on filedocumented in this encounter Care Teams Fence Installer Foreman Relationship Specialty Start Date End Date Robles House MD [address] [place] [address] PCP - General 01/18/22 documented as of this encounter
--- OUTSIDE RECORDS SUMMARY | 2024-04-06 20:15 | XMS_ITS | Encounter Summary ---
Author Organization [facility] nter Address [address] [place] [id number] [place] [address] [place] [address] Care Team Providers Care Traffic Police Officer Name Role Phone Robles House MD Primary Care Provider [phone] Encounter Details Date Type Department Care Team (Latest Contact Info) Description 04/13/2017 2:29 PM EST - 04/13/2017 11:59 PM EST Hospital Encounter PMC CONVERSION OUTPATIENT [address] [place] [address] Paige Arnold, JOSE ARMANDO [address] [place] [phone] Acute upper respiratory infection, unspecified Discharge Disposition: Home or Self Care Social History Tobacco Use Types Packs/Day Years Used Date Smoking Tobacco: Never Assessed Sex and Gender Information Value Date Recorded Sex Assigned at Female 07/20/2021 10:53 AM EST Gender Identity Not on file Sexual Orientation Not on file documented as of this encounter Plan of Treatment Not on file documented as of this encounter Visit Diagnoses Diagnosis Acute upper respiratory infection, unspecified documented in this encounter Care Teams Traffic Police Officer Relationship Specialty Start Date End Date Robles House MD [address] [place] [phone] PCP - General 01/18/22 documented as of this encounter
--- OUTSIDE RECORDS SUMMARY | 2024-04-06 20:15 | XMS_ITS | Encounter Summary ---
Author Organization [facility] nter Address [address] [place] [address] [place] [address] Care Team Providers Care Mechanical Handyman Name Role Phone Robles House MD Primary Care Provider [phone] Encounter Details Date Type Department Care Team (Latest Contact Info) Description 05/28/2017 3:03 PM EST - 05/28/2017 11:59 PM EST Hospital Encounter PMC CONVERSION OUTPATIENT [address] [place] [address] Robles House MD [address] [facility] [place] [facility] Encounter for screening for respiratory tuberculosis Discharge Disposition: Home or Self Care Social History Tobacco Use Types Packs/Day Years Used Date Smoking Tobacco: Never Assessed Sex and Gender Information Value Date Recorded Sex Assigned at Female 07/20/2021 10:53 AM EST Gender Identity Not on file Sexual Orientation Not on file documented as of this encounter Plan of Treatment Not on file documented as of this encounter Visit Diagnoses Diagnosis Encounter for screening for respiratory tuberculosis documented in this encounter Care Teams Mechanical Handyman Relationship Specialty Start Date End Date Robles House MD [address] [place] [phone] PCP - General 01/18/22 documented as of this encounter
--- OUTSIDE RECORDS SUMMARY | 2024-04-06 20:15 | XMS_ITS | Encounter Summary ---
Author Organization [facility] nter Address [address] [place] [address] Care Team Providers Care Steam Frame Operator Name Role Phone Robles House MD Primary Care Provider [phone] Encounter Details Date Type Department Care Team (Latest Contact Info) Description 04/27/2018 6:21 PM EST - 04/27/2018 11:59 PM EST Hospital Encounter [facility] CONVERSION OUTPATIENT [address] [place] [address] Ajit Khoury DO [address] [place] [address] Left upper quadrant pain Discharge Disposition: Home or Self Care [...] Procedure Name Priority Date/Time Associated Diagnosis Comments CT ABDOMEN PELVIS WO IV CONTRAST Routine 04/27/2018 9:12 PM EST US GALLBLADDER Routine 04/27/2018 7:12 PM EST documented in this encounter Results * CT abdomen pelvis wo IV contrast (04/27/2018 9:12 PM EST) Anatomical Region Laterality Modality Body, Pelvis, Abdomen Computed T omography 04/27/2018 9:12 PM EST Narrative 04/27/2018 9:50 PM EST PROCEDURE: CT ABD & PELVIS W/O CONT: 04/27/2018 CLINICAL INFORMATION: flank_pain: flank pain ERO 28 Emergency ??Department Room 28 The lung bases are clear. The liver, spleen, pancreas, and bilateral adrenal glands are unremarkable. The gallbladder is present and unremarkable. The kidneys show no evidence of hydronephrosis, or hydroureter. ??No obstructing ureteral stones are visualized. Urinary bladder is moderately distended and unremarkable in appearance. The gastrointestinal tract shows no acute abnormality. The abdominal and pelvic vascular structures are of normal caliber. Included osseous structures are overall intact. Impression: No evidence of acute abnormality involving the abdominal, or pelvic viscera. Procedure Note Anjel Crowell MD - 07/29/2021 PROCEDURE: CT ABD & PELVIS W/O CONT: 04/27/2018 CLINICAL INFORMATION: flank_pain: flank pain ERO 28 Emergency Department Room 28 The lung bases are clear. The liver, spleen, pancreas, and bilateral adrenal glands areunremarkable. The gallbladder is present and unremarkable. The kidneys show no evidence of hydronephrosis, or hydroureter. No obstructing ureteral stones are visualized. Urinary bladder ismoderately distended and unremarkable in appearance. The gastrointestinal tract shows no acute abnormality. The abdominal and pelvic vascular structures are of normal caliber.Included osseous structures are overall intact. Impression: No evidence of acute abnormality involving the abdominal, or pelvicviscera. Ajit Khoury DO IMG CT PROCEDURES * US gallbladder (04/27/2018 7:12 PM EST) Anatomical Region Laterality Modality Gall bladder Ultrasound 04/27/2018 7:12 PM EST Narrative 04/27/2018 8:03 PM EST PROCEDURE: US GALLBLADDER: 04/27/2018 CLINICAL INFORMATION: epigastric_pain: epigastric pain ERO 28 ??Emergency Department Room 28 ?? FINDINGS: The exam reveals the gallbladder is normal in size, shape and position. ??There is no evidence of intraluminal echoes o posterior acoustic areas of shadowing to suggest the presence of cholelithiasis. ??There is no thickening of the gallbladder. ?The common duct is 4.2 mm. ?? Impression: Nonspecific gallbladder by ultrasound. ??No evidence of cholelithiasis. ??Common duct 4.2 mm. ?? Procedure Note Anjel Crowell MD - 07/29/2021 PROCEDURE: US GALLBLADDER: 04/27/2018 CLINICAL INFORMATION: epigastric_pain: epigastric pain ERO 28 Emergency Department Room 28 FINDINGS: The exam reveals the gallbladder is normal in size, shape andposition. There is no evidence of intraluminal echoes o posterioracoustic areas of shadowing to suggest the presence of cholelithiasis.There is no thickening of the gallbladder. The common duct is 4.2 mm. Impression: Nonspecific gallbladder by ultrasound. No evidence of cholelithiasis.Common duct 4.2 mm. Ajit Khoury DO IMG US PROCEDURES documented in this encounter Visit Diagnoses Diagnosis Left upper quadrant pain Abdominal pain, left upper quadrant documented in this encounter Care Teams Steam Frame Operator Relationship Specialty Start Date End Date Robles House MD [address] [place] [id number] PCP - General 01/18/22 documented as of this encounter
--- OUTSIDE RECORDS SUMMARY | 2024-04-06 20:15 | XMS_ITS | Encounter Summary ---
Author Organization [facility] nter Address [address] [place] [id number] [place] [address] [place] [id number] Care Team Providers Care Rodding Anode Worker Name Role Phone Robles House MD Primary Care Provider [phone] Encounter Details Date Type Department Care Team (Latest Contact Info) Description 11/30/2017 2:20 PM EDT - 11/30/2017 11:59 PM EDT Hospital Encounter PM[facility] CONVERSION OUTPATIENT [address] [place] [id number] Paige Arnold, JOSE ARMANDO [address] [place] [address] Otitis media, unspecified, bilateral; Allergic rhinitis, unspecified Discharge Disposition: Home or Self Care [...] as of this encounter Visit Diagnoses Diagnosis Otitis media, unspecified, bilateral Allergic rhinitis, unspecified documented in this encounter Care Teams Rodding Anode Worker Relationship Specialty Start Date End Date Robles House MD [address] [place] [address] PCP - General 01/18/22 documented as of this encounter
[2024-04-06 20:48] VITALS: BP 117/100; PULSE 85; O2SAT 99
[2024-04-06] MEDS: METOCLOPRAMIDE HCL 10MG/2ML VIAL 10 MG IVP (20:55)
[2024-04-06] MEDS: diphenhydrAMINE 50MG/ML VIAL 25 MG IV (20:55)
[2024-04-06 21:22] LABS: HCG Qualitative, Serum Negative (Negative)
[2024-04-06] MEDS: KETOROLAC 30MG/ML VIAL 30 MG IV (21:35)
[2024-04-06 21:39] VITALS: BP 129/92; PULSE 77; O2SAT 99
[2024-04-06 22:01] VITALS: BP 112/66; PULSE 64; O2SAT 99
[2024-04-06 22:12] LABS: HIV (1&2) Antibody Rapid NONREACTIVE (NONREACTIVE)
[2024-04-06 22:31] VITALS: BP 134/81; PULSE 81; O2SAT 99
[2024-04-06] MEDS: ONDANSETRON 4MG/2ML VIAL 4 MG IV (22:52)
[2024-04-06 23:02] VITALS: BP 134/81; PULSE 81; RESP 20; TEMP 36.6; O2SAT 99
--- NOTE | 2024-04-08 07:49 | HMH.EDGENADL ---
Discharge Plan Disposition Patient Disposition: Home, Self-Care Condition: Good Prescriptions Prescriptions: No Action prednisone 50 mg tablet 50 mg PO DAILY 3 Days Qty: 3 0RF epinephrine 0.3 mg/0.3 mL auto-injector 0.3 mg IM Q10M PRN (Reason: anaphylaxis) Qty: 2 0RF Rx Instructions: for 2 doses promethazine 25 mg tablet 25 mg PO TID PRN (Reason: nausea and vomiting) Qty: 12 0RF Referrals Follow up/Referrals: Provider,Referral, MD [Primary Care Provider] - See instructions Activity Restrictions/Add. Instructions Additional Instructions/Restrictions: You were seen for a migraine. Please follow up with your PCP this week for further management. Return to ED if you have fever or severe pain. Clinical Impressions Clinical Impression: Migraine Stand Alone Forms Stand Alone Forms: Work/School Release Instructions Patient Instructions: DI for Migraine Print Language Print Language: Liberian Discharge ED Provider: Frankie Rodriguez General Adult HPI <ANTONIA Cano - Last Filed: 04/09/24 21:45> General Chief complaint: Headache Stated complaint: LERMA,knot on back of neck,vomiting Time Seen by Provider: 04/06/24 20:11 History of Present Illness HPI narrative: Patient presents with migraine. She reports she does have a history of migraine. Denies the worst LERMA of her life or sudden onset. She has had associated N/V. She reports she typically has a knot on the side of her neck with migraine. This area has not been painful in the past, lately she has noted some tenderness. complaint: migraine Onset (ago): hour(s) Location: head and neck Radiation: neck Severity: moderate Consistency: constant Relieving factors: none Exacerbating factors: none Related Data Previous Rx's ?Medication ?Instructions ?Recorded promethazine 25 mg tablet 25 mg PO TID PRN nausea and 09/29/23 vomiting #12 tabs epinephrine 0.3 mg/0.3 mL 0.3 mg (0.3 mL) IM Q10M PRN 02/03/24 injection, auto-injector anaphylaxis #2 ea prednisone 50 mg tablet 50 mg PO DAILY 3 days #3 tabs 02/03/24 Allergies Allergy/AdvReac Type Severity Reaction Status Date / Time cinnamon Allergy Anaphylaxis Verified 02/03/24 11:57 raspberry Allergy Anaphylaxis Verified 02/03/24 11:57 sulfamethoxazole (From Allergy Unknown Verified 02/03/24 11:57 Bactrim) allergy reaction trimethoprim (From Bactrim) Allergy Unknown Verified 02/03/24 11:57 allergy reaction <Frankie Rodriguez MD - Last Filed: 04/10/24 07:12> General Mode of Arrival: Ambulatory Source of Information: Patient Limitations: No Limitations Description of Symptoms (Recalled from ER Triage Doc. by RN): Pt presents to ED for migraine, vomiting and a knot on her neck. Pt states this has been going on for 2 days. Pt is A&O*4 at this time and sig other is bedside. [facility] <ANTONIA Cano - Last Filed: 04/09/24 21:45> [facility] Social History (Updated 09/29/23 @ 15:09 by Frankie Rodriguez MD) Smoking Status: Unknown if ever smoked alcohol intake: never current occupational status: employed <Frankie Rodriguez MD - Last Filed: 04/10/24 07:12> [facility] Disclaimer: The information contained in this section may have been updated after the patient was seen, as this information can be updated by other users. <ANTONIA Cano - Last Filed: 04/09/24 21:45> ROS Obtained: Yes Systems reviewed as appropriate & no additional complaints except as documented Physical Exam <ANTONIA Cano - Last Filed: 04/09/24 21:45> General General appearance: alert and in no apparent distress Head Head exam: atraumatic and normocephalic Eye Eye exam: Present normal appearance and EOMI Neck Neck exam: Present other (Right lateral neck TTP below ear, no masses palpable ) Chest Chest inspection: Present symmetric chest wall rise Respiratory Respiratory exam: Present normal lung sounds bilaterally; Absent wheezes or stridor Cardiovascular Cardiovascular exam: Present regular rate and normal rhythm; Absent systolic murmur Extremities Exam Extremities exam: Present full ROM Neurological Exam Neurological exam: Present alert and oriented X3 Psychiatric Psychiatric exam: Present normal affect and normal mood Skin Skin exam: Present warm, dry and intact Medical Decision Making <ANTONIA Cano - Last Filed: 04/09/24 21:45> Kenn Inquiry Pt receiving controlled substance: No Vital Signs: 04/06/24 20:02 04/06/24 20:48 04/06/24 21:39 Temperature 97.9 F Temperature Source Oral Pulse Rate 85 77 Pulse Rate [Left] 100 H Respiratory Rate 18 Blood Pressure 117/100 H 129/92 H Blood Pressure [Right Arm] 147/99 H Blood Pressure Mean [Right Arm] 115 02 Sat by Pulse Oximetry 100 99 99 Oxygen Delivery Method 04/06/24 22:01 04/06/24 22:31 04/06/24 23:02 Temperature 97.9 F Temperature Source Oral Pulse Rate 64 81 81 Pulse Rate [Left] Respiratory Rate 20 Blood Pressure 112/66 134/81 134/81 Blood Pressure [Right Arm] Blood Pressure Mean [Right Arm] 02 Sat by Pulse Oximetry 99 99 Oxygen Delivery Method Room Air Lab Data Lab Results 04/06/24 21:00: Serum HCG, Qual Negative, Hepatitis C Antibody Non reactive, HIV 1&2 Antibody Rapid Nonreactive Orders (Tests/Meds): ED MEDICATIONS Discontinued Medications Generic Name Dose Route Start Last Admin Trade Name Kirtq PRN Reason Stop Dose Admin Diphenhydramine HCl 25 mg 04/06/24 20:21 04/06/24 20:55 Diphenhydramine 50mg/Ml Vial IV 04/06/24 20:22 25 mg ONCE ONE Administration Ketorolac Tromethamine 30 mg 04/06/24 21:31 04/06/24 21:35 Ketorolac 30mg/Ml Vial IV 04/06/24 21:32 30 mg ONCE ONE Administration Metoclopramide HCl 10 mg 04/06/24 20:21 04/06/24 20:55 Metoclopramide Hcl 10mg/2ml Vial IVP 04/06/24 20:22 10 mg ONCE ONE Administration Ondansetron HCl 4 mg 04/06/24 22:44 04/06/24 22:52 Ondansetron 4mg/2ml Vial IV 04/06/24 22:45 4 mg ONCE ONE Administration ORDERS Category Date Time Status HCG Qualitative, Serum Stat Lab 04/06/24 21:00 Completed HIV (1&2) Antibody Rapid Stat Lab 04/06/24 21:00 Completed Hep C Ab with Reflex to RNA Stat Lab 04/06/24 21:00 Completed Medical Decision Narrative: Patient presents with a migraine. No red flag s/sx and patient has a normal neuro exam. Vitals stable and afebrile. Patient improved with migraine coctail. Advised to return to ED for any worsening. Follow up with PCP this week for further evaluation of neck tenderness. Agreeable to plan. <Frankie Rodriguez MD - Last Filed: 04/10/24 07:12> Medical Records Screening: Per USPSTF and CDC recommendations, given the prevalence of disease in our region, it is our hospital?s policy to screen for HIV and viral Hepatitis for all patients aged 18 and over and those with ongoing risk factors. Vital Signs: 04/06/24 20:02 04/06/24 20:48 04/06/24 21:39 Temperature 97.9 F Temperature Source Oral Pulse Rate 85 77 Pulse Rate [Left] 100 H Respiratory Rate 18 Blood Pressure 117/100 H 129/92 H Blood Pressure [Right Arm] 147/99 H Blood Pressure Mean [Right Arm] 115 02 Sat by Pulse Oximetry 100 99 99 Oxygen Delivery Method 04/06/24 22:01 04/06/24 22:31 04/06/24 23:02 Temperature 97.9 F Temperature Source Oral Pulse Rate 64 81 81 Pulse Rate [Left] Respiratory Rate 20 Blood Pressure 112/66 134/81 134/81 Blood Pressure [Right Arm] Blood Pressure Mean [Right Arm] 02 Sat by Pulse Oximetry 99 99 Oxygen Delivery Method Room Air Lab Data Lab Results 04/06/24 21:00: Serum HCG, Qual Negative, Hepatitis C Antibody Non reactive, HIV 1&2 Antibody Rapid Nonreactive Orders (Tests/Meds): ED MEDICATIONS Discontinued Medications Generic Name Dose Route Start Last Admin Trade Name Freq PRN Reason Stop Dose Admin Diphenhydramine HCl 25 mg 04/06/24 20:21 04/06/24 20:55 Diphenhydramine 50mg/Ml Vial IV 04/06/24 20:22 25 mg ONCE ONE Administration Ketorolac Tromethamine 30 mg 04/06/24 21:31 04/06/24 21:35 Ketorolac 30mg/Ml Vial IV 04/06/24 21:32 30 mg ONCE ONE Administration Metoclopramide HCl 10 mg 04/06/24 20:21 04/06/24 20:55 Metoclopramide Hcl 10mg/2ml Vial IVP 04/06/24 20:22 10 mg ONCE ONE Administration Ondansetron HCl 4 mg 04/06/24 22:44 04/06/24 22:52 Ondansetron 4mg/2ml Vial IV 04/06/24 22:45 4 mg ONCE ONE Administration ORDERS Category Date Time Status HCG Qualitative, Serum Stat Lab 04/06/24 21:00 Completed HIV (1&2) Antibody Rapid Stat Lab 04/06/24 21:00 Completed Hep C Ab with Reflex to RNA Stat Lab 04/06/24 21:00 Completed Medical Decision Narrative: Patient presents with a migraine. No red flag s/sx and patient has a normal neuro exam. Vitals stable and afebrile. Patient improved with migraine coctail. Advised to return to ED for any worsening. Follow up with PCP this week for further evaluation of neck tenderness. Agreeable to plan. I was consulted by the PIERCE, and we discussed the complexity of the problems being addressed. I approved the treatment and management plan for this patient's care in the Emergency Department, thus performing a substantive portion of the medical decision making. Frankie Rodriguez MD Critical Care <ANTONIA Caon - Last Filed: 04/09/24 21:45> Critical Care Time Critical Care Time: No
[2024-04-08 11:19] LABS: HCV Ab Non Reactive (Non Reactive)
--- NOTE | 2024-04-09 21:15 | ED_ITS ---
Discharge Plan Disposition Patient Disposition: Home, Self-Care Condition: Good Prescriptions Prescriptions: No Action prednisone 50 mg tablet 50 mg PO DAILY 3 Days Qty: 3 0RF epinephrine 0.3 mg/0.3 mL auto-injector 0.3 mg IM Q10M PRN (Reason: anaphylaxis) Qty: 2 0RF Rx Instructions: for 2 doses promethazine 25 mg tablet 25 mg PO TID PRN (Reason: nausea and vomiting) Qty: 12 0RF Referrals Follow up/Referrals: Provider,Referral, MD [Primary Care Provider] - See instructions Activity Restrictions/Add. Instructions Additional Instructions/Restrictions: You were seen for a migraine. Please follow up with your PCP this week for further management. Return to ED if you have fever or severe pain. Clinical Impressions Clinical Impression: Migraine Stand Alone Forms Stand Alone Forms: Work/School Release Instructions Patient Instructions: DI for Migraine Print Language Print Language: Haitian Discharge ED Provider: Frankie Rodriguez General Adult HPI <ANTONIA Cano - Last Filed: 04/09/24 21:28> General Chief complaint: Headache Stated complaint: LERMA,knot on back of neck,vomiting Time Seen by Provider: 04/06/24 20:11 Mode of Arrival: Ambulatory Source of Information: Patient Limitations: No Limitations Description of Symptoms (Recalled from ER Triage Doc. by RN): Pt presents to ED for migraine, vomiting and a knot on her neck. Pt states this has been going on for 2 days. Pt is A&O*4 at this time and sig other is bedside. History of Present Illness HPI narrative: Patient presents with migraine. she does report a history of migraines. Denies the worst headache of her life. Denies sudden onset. reports a knot on the side of her neck, which she usually has with her headaches. She reports this has been more tender recently. complaint: headache Onset (ago): hour(s) Location: head and neck Radiation: neck Severity: moderate Consistency: constant Relieving factors: none Exacerbating factors: none Associated symptoms: nausea/vomiting Related Data Previous Rx's ?Medication ?Instructions ?Recorded promethazine 25 mg tablet 25 mg PO TID PRN nausea and 09/29/23 vomiting #12 tabs epinephrine 0.3 mg/0.3 mL 0.3 mg (0.3 mL) IM Q10M PRN 02/03/24 injection, auto-injector anaphylaxis #2 ea prednisone 50 mg tablet 50 mg PO DAILY 3 days #3 tabs 02/03/24 Allergies Allergy/AdvReac Type Severity Reaction Status Date / Time cinnamon Allergy Anaphylaxis Verified 02/03/24 11:57 raspberry Allergy Anaphylaxis Verified 02/03/24 11:57 sulfamethoxazole (From Allergy Unknown Verified 02/03/24 11:57 Bactrim) allergy reaction trimethoprim (From Bactrim) Allergy Unknown Verified 02/03/24 11:57 allergy reaction PFSH <ANTONIA Cano - Last Filed: 04/09/24 21:28> [facility] Disclaimer: The information contained in this section may have been updated after the patient was seen, as this information can be updated by other users. Social History (Updated 09/29/23 @ 15:09 by Frankie Rodriguez MD) Smoking Status: Unknown if ever smoked alcohol intake: never current occupational status: employed <ANTONIA Cano Last Filed: 04/09/24 21:28> ROS Obtained: Yes Systems reviewed as appropriate & no additional complaints except as documented Physical Exam <ANTONIA Cano Last Filed: 04/09/24 21:28> General General appearance: alert and in no apparent distress Head Head exam: atraumatic and normocephalic Eye Eye exam: Present normal appearance and EOMI Neck Neck exam: Present other (mild tenderness to right lateral neck, no palpable masses) Chest Chest inspection: Present symmetric chest wall rise Respiratory Respiratory exam: Present normal lung sounds bilaterally; Absent wheezes or stridor Cardiovascular Cardiovascular exam: Present regular rate and normal rhythm; Absent systolic murmur Extremities Exam Extremities exam: Present full ROM Neurological Exam Neurological exam: Present alert, oriented X3 and CN II-XII intact; Absent motor sensory deficit Psychiatric Psychiatric exam: Present normal affect and normal mood Skin Skin exam: Present warm, dry and intact Medical Decision Making <ANTONIA Cano Last Filed: 04/09/24 21:28> Medical Records Screening: Per USPSTF and CDC recommendations, given the prevalence of disease in our region, it is our hospital?s policy to screen for HIV and viral Hepatitis for all patients aged 18 and over and those with ongoing risk factors. Kenn Inquiry Pt receiving controlled substance: No Vital Signs: 04/06/24 20:02 04/06/24 20:48 04/06/24 21:39 Temperature 97.9 F Temperature Source Oral Pulse Rate 85 77 Pulse Rate [Left] 100 H Respiratory Rate 18 Blood Pressure 117/100 H 129/92 H Blood Pressure [Right Arm] 147/99 H Blood Pressure Mean [Right Arm] 115 02 Sat by Pulse Oximetry 100 99 99 Oxygen Delivery Method 04/06/24 22:01 04/06/24 22:31 04/06/24 23:02 Temperature 97.9 F Temperature Source Oral Pulse Rate 64 81 81 Pulse Rate [Left] Respiratory Rate 20 Blood Pressure 112/66 134/81 134/81 Blood Pressure [Right Arm] Blood Pressure Mean [Right Arm] 02 Sat by Pulse Oximetry 99 99 Oxygen Delivery Method Room Air Lab Data Lab Results 04/06/24 21:00: Serum HCG, Qual Negative, Hepatitis C Antibody Non reactive, HIV 1&2 Antibody Rapid Nonreactive Orders (Tests/Meds): ED MEDICATIONS Discontinued Medications Generic Name Dose Route Start Last Admin Trade Name Freq PRN Reason Stop Dose Admin Diphenhydramine HCl 25 mg 04/06/24 20:21 04/06/24 20:55 Diphenhydramine 50mg/Ml Vial IV 04/06/24 20:22 25 mg ONCE ONE Administration Ketorolac Tromethamine 30 mg 04/06/24 21:31 04/06/24 21:35 Ketorolac 30mg/Ml Vial IV 04/06/24 21:32 30 mg ONCE ONE Administration Metoclopramide HCl 10 mg 04/06/24 20:21 04/06/24 20:55 Metoclopramide Hcl 10mg/2ml Vial IVP 04/06/24 20:22 10 mg ONCE ONE Administration Ondansetron HCl 4 mg 04/06/24 22:44 04/06/24 22:52 Ondansetron 4mg/2ml Vial IV 04/06/24 22:45 4 mg ONCE ONE Administration ORDERS Category Date Time Status HCG Qualitative, Serum Stat Lab 04/06/24 21:00 Completed HIV (1&2) Antibody Rapid Stat Lab 04/06/24 21:00 Completed Hep C Ab with Reflex to RNA Stat Lab 04/06/24 21:00 Completed Medical Decision Narrative: patient presents complaining of migraine. No red flag signs or symptoms. She has a normal neurologic exam. Vital signs stable and she has a febrile. Patient improved with migraine cocktail. Instructed to follow up with her PCP this week for further evaluation. she is agreeable to plan. <Frankie Rodriguez MD - Last Filed: 04/10/24 07:11> Vital Signs: 04/06/24 20:02 04/06/24 20:48 04/06/24 21:39 Temperature 97.9 F Temperature Source Oral Pulse Rate 85 77 Pulse Rate [Left] 100 H Respiratory Rate 18 Blood Pressure 117/100 H 129/92 H Blood Pressure [Right Arm] 147/99 H Blood Pressure Mean [Right Arm] 115 02 Sat by Pulse Oximetry 100 99 99 Oxygen Delivery Method 04/06/24 22:01 04/06/24 22:31 04/06/24 23:02 Temperature 97.9 F Temperature Source Oral Pulse Rate 64 81 81 Pulse Rate [Left] Respiratory Rate 20 Blood Pressure 112/66 134/81 134/81 Blood Pressure [Right Arm] Blood Pressure Mean [Right Arm] 02 Sat by Pulse Oximetry 99 99 Oxygen Delivery Method Room Air Lab Data Lab Results 04/06/24 21:00: Serum HCG, Qual Negative, Hepatitis C Antibody Non reactive, HIV 1&2 Antibody Rapid Nonreactive Orders (Tests/Meds): ED MEDICATIONS Discontinued Medications Generic Name Dose Route Start Last Admin Trade Name Freq PRN Reason Stop Dose Admin Diphenhydramine HCl 25 mg 04/06/24 20:21 04/06/24 20:55 Diphenhydramine 50mg/Ml Vial IV 04/06/24 20:22 25 mg ONCE ONE Administration Ketorolac Tromethamine 30 mg 04/06/24 21:31 04/06/24 21:35 Ketorolac 30mg/Ml Vial IV 04/06/24 21:32 30 mg ONCE ONE Administration Metoclopramide HCl 10 mg 04/06/24 20:21 04/06/24 20:55 Metoclopramide Hcl 10mg/2ml Vial IVP 04/06/24 20:22 10 mg ONCE ONE Administration Ondansetron HCl 4 mg 04/06/24 22:44 04/06/24 22:52 Ondansetron 4mg/2ml Vial IV 04/06/24 22:45 4 mg ONCE ONE Administration ORDERS Category Date Time Status HCG Qualitative, Serum Stat Lab 04/06/24 21:00 Completed HIV (1&2) Antibody Rapid Stat Lab 04/06/24 21:00 Completed Hep C Ab with Reflex to RNA Stat Lab 04/06/24 21:00 Completed Medical Decision Narrative: patient presents complaining of migraine. No red flag signs or symptoms. She has a normal neurologic exam. Vital signs stable and she has a febrile. Patient improved with migraine cocktail. Instructed to follow up with her PCP this week for further evaluation. she is agreeable to plan. I was consulted by the PIERCE, and we discussed the complexity of the problems being addressed. I approved the treatment and management plan for this patient's care in the Emergency Department, thus performing a substantive portion of the medical decision making. Frankie Rodriguez MD Critical Care <ANTONIA Cano - Last Filed: 04/09/24 21:28> Critical Care Time Critical Care Time: No
== END 2024-04-06 23:07 | disposition home or self-care (01) ==
PROVIDERS: Physician Assistant; Emergency Provider Emergency Medicine
DX: G43.909 Migraine, unspecified, not intractable, without status migrainosus (principal); R11.2 Nausea with vomiting, unspecified; R22.1 Localized swelling, mass and lump, neck
CPT/HCPCS: 84703; 86803; 87389; 96374; 96375; 99283; J1200; J1885; J2405; J2765

== ENCOUNTER 2024-06-16 14:23 | Emergency (ER) | payer MEDICAID, SELFPAY ==
[2024-06-16 14:24] VITALS: BP 138/95; PULSE 97; RESP 18; TEMP 36.7; O2SAT 100; BMI 38.2
[2024-06-16 14:31] VITALS: BP 124/81; PULSE 90; O2SAT 99
[2024-06-16] MEDS: DEXAMETHASONE 4MG TABLET 10 MG PO (14:52)
[2024-06-16] MEDS: diphenhydrAMINE 25MG CAPSULE 50 MG PO (14:52)
[2024-06-16] MEDS: ONDANSETRON 4MG ODT 4 MG SL (14:52)
[2024-06-16] MEDS: FAMOTIDINE 20MG TABLET 20 MG PO (14:52)
--- NOTE | 2024-06-16 14:59 | ED_ITS ---
Discharge Plan Disposition Patient Disposition: Home, Self-Care Condition: Good Prescriptions Prescriptions: No Action epinephrine 0.3 mg/0.3 mL auto-injector 0.3 mg IM Q10M PRN (Reason: anaphylaxis) Qty: 2 0RF Rx Instructions: for 2 doses topiramate [Topamax] 50 mg Tablet 50 mg PO BID Vitamin D (with calcium) 77-400 mg-unit Tablet 1 tab PO DAILY omeprazole 20 mg Tablet,Delayed Release (Dr/Ec) 20 mg PO BID duloxetine 40 mg Capsule, Delayed Rel Sprinkle 40 mg PO BID Referrals Follow up/Referrals: Provider,Referral, MD [Primary Care Provider] - See instructions Activity Restrictions/Add. Instructions Additional Instructions/Restrictions: No evidence of anaphylaxis please return with any need to use epinephrine or with any other concerns. Clinical Impressions Clinical Impression: Allergic reaction Stand Alone Forms Stand Alone Forms: Work/School Release Print Language Print Language: Lao Discharge ED Provider: Frankie Rodriguez General Adult HPI <Frankie Rodriguez MD - Last Filed: 06/18/24 15:15> General Chief complaint: Allergic Reaction Stated complaint: ANAPHYLACTIC Time Seen by Provider: 06/16/24 14:30 Mode of Arrival: Ambulatory Source of Information: Patient Limitations: No Limitations Description of Symptoms (Recalled from ER Triage Doc. by RN): PT REPORTS TO BLACKBERRIES. PT REPORTS COUGH, DIFFICULTY SWALLOWING AND TONGUE FELT THICK PT DID NOT EAT BLACKBERRIES, OR TOUCH THEM. EMESIS X 1. PT SPEAKING IN FULL SENTENCES. RESPIRATIONS EVEN AND UNLABORED. PT HAS EPI-PEN BUT DID NOT USE History of Present Illness HPI narrative: Please note that above description of symptoms, in this electronic medical record under categorization of recalled from ER triage doctor by RN are reflective of an initial nursing assessment, however, is not reflective of my full history and physical exam that was personally taken and clarified. Consequentially, this preceding description of symptoms, which may include the patient's categorized chief complaint in the EMR, do not reflect my personal cli nical impression, and the ultimate description of history of present illness and patient stated complaints should be deferred to this section of the note. Unless stated otherwise or congruent with this section of the note, additional signs, symptoms, or incongruence should be interpreted as inaccurate with my clinical impression. Related Data Home Medications ?Medication ?Instructions ?Recorded ?Confirmed calcium phosphate,dibasic 77 1 tab PO DAILY 06/16/24 06/16/24 mg-vitamin D3 400 unit tablet duloxetine 40 mg capsule,delayed 40 mg PO BID 06/16/24 06/16/24 release sprinkle omeprazole 20 mg tablet,delayed 20 mg PO BID 06/16/24 06/16/24 release topiramate 50 mg tablet (Topamax) 50 mg PO BID 06/16/24 06/16/24 Previous Rx's ?Medication ?Instructions ?Recorded epinephrine 0.3 mg/0.3 mL 0.3 mg (0.3 mL) IM Q10M PRN 02/03/24 injection, auto-injector anaphylaxis #2 ea Allergies Allergy/AdvReac Type Severity Reaction Status Date / Time cinnamon Allergy Anaphylaxis Verified 02/03/24 11:57 raspberry Allergy Anaphylaxis Verified 02/03/24 11:57 sulfamethoxazole (From Allergy Unknown Verified 02/03/24 11:57 Bactrim) allergy reaction trimethoprim (From Bactrim) Allergy Unknown Verified 02/03/24 11:57 allergy reaction PFSH <Frankie Rodriguez MD - Last Filed: 06/18/24 15:15> FOR[facility]LY [facility], [facility] Disclaimer: The information contained in this section may have been updated after the patient was seen, as this information can be updated by other users. Social History (Updated 09/29/23 @ 15:09 by Frankie Rodriguez MD) Smoking Status: Never smoker alcohol intake: never current occupational status: employed Travel in the last 8 weeks: None Have you lived/traveled outside US in past 30 days?: No Contact w/someone who lives/traveled outside US past 30 days?: No Exposure to someone with infectious disease in past 14 days?: No Do you have a fever (greater than 100.4 F or 38 C)?: No Have you tested positive for COVID-19: No Exposed to someone with COVID-19 in past 14 days?: No Do you have a sore throat?: No Do you have a cough?: No Do you have any weakness?: No Do you have any diarrhea?: No Are you experiencing any unusual bleeding?: No Do you have any muscle aches/pain?: No Do you have any abdominal pain?: No Are you experiencing loss of taste or smell?: No <Frankie Rodriguez MD - Last Filed: 06/18/24 15:15> ROS Obtained: Yes All systems reviewed & no additional complaints except as documented Physical Exam <Frankie Rodriguez MD - Last Filed: 06/18/24 15:15> General General appearance: alert Head Head exam: atraumatic and normocephalic Eye Eye exam: Present normal appearance, PERRL and EOMI ENT ENT exam: Present normal exam and normal oropharynx Neck Neck exam: Present normal inspection, full ROM and trachea midline Respiratory Respiratory exam: Present normal lung sounds bilaterally; Absent respiratory d istress, wheezes, stridor, accessory muscle use or prolonged expiratory phase Cardiovascular Cardiovascular exam: Present regular rate, normal rhythm and other (Pulses equal symmetric in upper and lower extremities) Abdominal Exam Abdominal exam: Present soft; Absent distention, tenderness, guarding or pulsatile mass Extremities Exam Extremities exam: Absent edema Neurological Exam Neurological exam: Present alert, oriented X3 and CN II-XII intact; Absent motor sensory deficit Skin Skin exam: Present warm and dry; Absent diaphoresis or erythema Medical Decision Making <Frankie Rodriguez MD - Last Filed: 06/18/24 15:15> Medical Records Medical records reviewed: Yes I reviewed the patient's medical records. Screening: Per USPSTF and CDC recommendations, given the prevalence of disease in our region, it is our hospital?s policy to screen for HIV and viral Hepatitis for all patients aged 18 and over and those with ongoing risk factors. Kenn Inquiry Pt receiving controlled substance: No Kenn was queried for this patient: No Vital Signs: 06/16/24 14:24 06/16/24 14:31 06/16/24 15:00 Temperature 98.0 F Temperature Source Oral Pulse Rate 90 85 Pulse Rate [Radial] 97 H Respiratory Rate 18 Blood Pressure 124/81 139/75 Blood Pressure [Right Arm] 138/95 H Blood Pressure Mean [Right Arm] 109 Blood Pressure Source Blood Pressure Source [Right Arm] Automatic Cuff Blood Pressure Position Blood Pressure Position [Right Arm] Sitting 02 Sat by Pulse Oximetry 100 99 99 Oxygen Delivery Method Room Air Room Air Room Air 06/16/24 16:08 Temperature 98.0 F Temperature Source Oral Pulse Rate 76 Pulse Rate [Radial] Respiratory Rate 17 Blood Pressure 120/70 Blood Pressure [Right Arm] Blood Pressure Mean [Right Arm] Blood Pressure Source Automatic Cuff Blood Pressure Source [Right Arm] Blood Pressure Position Sitting Blood Pressure Position [Right Arm] 02 Sat by Pulse Oximetry Oxygen Delivery Method Room Air Orders (Tests/Meds): ED MEDICATIONS Discontinued Medications Generic Name Dose Route Start Last Admin Trade Name Juan Carlos PRSara Reason Stop Dose Admin Dexamethasone 10 mg 06/16/24 14:31 06/16/24 14:52 Dexamethasone 4mg Tablet PO 06/16/24 14:32 10 mg ONCE ONE Administration Diphenhydramine HCl 50 mg 06/16/24 14:31 06/16/24 14:52 Diphenhydramine 25mg Capsule PO 06/16/24 14:32 50 mg ONCE ONE Administration Famotidine 20 mg 06/16/24 14:31 06/16/24 14:52 Famotidine 20mg Tablet PO 06/16/24 14:32 20 mg ONCE ONE Administration Ondansetron HCl 4 mg 06/16/24 14:31 06/16/24 14:52 Ondansetron 4mg Odt SL 06/16/24 14:32 4 mg ONCE ONE Administration Medical Decision Narrative: 24-year-old female presenting out of concern for potential allergic reaction. 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 Tasted something just prior to arrival, smiled and thought it smelled like raspberries. States that she felt like her tongue started swelling up, so came in for further evaluation. About 30 minutes prior to this visit. On arrival, she is very well-appearing. She is nontachycardic, normotensive, speaking in full sentences. Lungs are clear, no evidence of stridor, no evidence of oral facial swelling. Says that she did have 1 episode of vomiting, not currently retching or vomiting here. No diarrhea. No rash. Overall unremarkable exam. I do not feel patient meets criteria to have epinephrine IM. She was given oral meds and period of observation was started. Patient started observation on arrival around 2:30 PM in order to give meds and determine need for admission versus home-going. The patient was provided medications, serial exams while awaiting results. Prior to reevaluation, care handed off to oncoming physician. Solid Waste Division Supervisor disclaimer Much of this encounter note is an electronic molecular biology director spoken language to printed text. Electronic molecular biology director of the spoken language may permit errors. Although I have reviewed the note, some errors may still exist. Reassessment this is Dr. Capone I took over from Dr. Rodriguez around 3 PM. Patient was observed for about 2 hours on my reassessments at 4 PM patient had no evidence of anaphylaxis or objective evidence of any allergic reaction at this point. She states she is feeling better she has EpiPen's at home she understands return precautions and when to use epinephrine and when to come back to the emergency department. Patient was discharged in stable condition peer <Celio Capone MD - Last Filed: 06/16/24 16:03> Vital Signs: 06/16/24 14:24 06/16/24 14:31 06/16/24 15:00 Temperature 98.0 F Temperature Source Oral Pulse Rate 90 85 Pulse Rate [Radial] 97 H Respiratory Rate 18 Blood Pressure 124/81 139/75 Blood Pressure [Right Arm] 138/95 H Blood Pressure Mean [Right Arm] 109 Blood Pressure Source Blood Pressure Source [Right Arm] Automatic Cuff Blood Pressure Position Blood Pressure Position [Right Arm] Sitting 02 Sat by Pulse Oximetry 100 99 99 Oxygen Delivery Method Room Air Room Air Room Air 06/16/24 16:08 Temperature 98.0 F Temperature Source Oral Pulse Rate 76 Pulse Rate [Radial] Respiratory Rate 17 Blood Pressure 120/70 Blood Pressure [Right Arm] Blood Pressure Mean [Right Arm] Blood Pressure Source Automatic Cuff Blood Pressure Source [Right Arm] Blood Pressure Position Sitting Blood Pressure Position [Right Arm] 02 Sat by Pulse Oximetry Oxygen Delivery Method Room Air Orders (Tests/Meds): ED MEDICATIONS Discontinued Medications Generic Name Dose Route Start Last Admin Trade Name Kirtq PRN Reason Stop Dose Admin Dexamethasone 10 mg 06/16/24 14:31 06/16/24 14:52 Dexamethasone 4mg Tablet PO 06/16/24 14:32 10 mg ONCE ONE Administration Diphenhydramine HCl 50 mg 06/16/24 14:31 06/16/24 14:52 Diphenhydramine 25mg Capsule PO 06/16/24 14:32 50 mg ONCE ONE Administration Famotidine 20 mg 06/16/24 14:31 06/16/24 14:52 Famotidine 20mg Tablet PO 06/16/24 14:32 20 mg ONCE ONE Administration Ondansetron HCl 4 mg 06/16/24 14:31 06/16/24 14:52 Ondansetron 4mg Odt SL 06/16/24 14:32 4 mg ONCE ONE Administration Medical Decision Narrative: 24-year-old female presenting out of concern for potential allergic reaction. 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 Tasted something just prior to arrival, smiled and thought it smelled like raspberries. States that she felt like her tongue started swelling up, so came in for further evaluation. About 30 minutes prior to this visit. On arrival, she is very well-appearing. She is nontachycardic, normotensive, speaking in full sentences. Lungs are clear, no evidence of stridor, no evidence of oral facial swelling. Says that she did have 1 episode of vomiting, not currently retching or vomiting here. No diarrhea. No rash. Overall unremarkable exam. I do not feel patient meets criteria to have epinephrine IM. She was given oral meds and period of observation was started. Patient started observation on arrival around 2:30 PM in order to give meds and determine need for admission versus home-going. The patient was provided medications, serial exams while awaiting results. Independent interpretation of results demonstrated []. On reevaluation, []. At this time, I feel patient is appropriate [for admission/discharge]. Total observation time []. Solid Waste Division Supervisor disclaimer Much of this encounter note is an electronic molecular biology director spoken language to printed text. Electronic molecular biology director of the spoken language may permit errors. Although I have reviewed the note, some errors may still exist. Reassessment this is Dr. Capone I took over from Dr. Rodriguez around 3 PM. Patient was observed for about 2 hours on my reassessments at 4 PM patient had no evidence of anaphylaxis or objective evidence of any allergic reaction at this point. She states she is feeling better she has EpiPen's at home she under stands return precautions and when to use epinephrine and when to come back to the emergency department. Patient was discharged in stable condition peer Critical Care <Frankie Rodriguez MD - Last Filed: 06/18/24 15:15> Critical Care Time Critical Care Time: No
[2024-06-16 15:00] VITALS: BP 139/75; PULSE 85; O2SAT 99
--- NOTE | 2024-06-16 15:00 | PC.NURSE ---
report received from SCOTT Zamora
[2024-06-16 16:08] VITALS: BP 120/70; PULSE 76; RESP 17; TEMP 36.7; O2SAT 100
== END 2024-06-16 16:13 | disposition home or self-care (01) ==
PROVIDERS: Emergency Provider Emergency Medicine
DX: T78.40XA Allergy, unspecified, initial encounter (principal); R05.9 Cough, unspecified; R11.10 Vomiting, unspecified; R13.10 Dysphagia, unspecified
CPT/HCPCS: 99283; J8540; Q0162

== ENCOUNTER 2024-12-11 20:42 | Emergency (ER) | payer OTHER, SELFPAY ==
--- OUTSIDE RECORDS SUMMARY | 2024-11-19 06:00 | XMS_ITS ---
Author Organization [facility] Address [address] [place] [address] Care Team Providers Care Oil And Gas Superintendent Name Role Phone Sabiha Up Unavailable [phone] REASON FOR VISIT no menses for several months Social History Sex Assigned At : Social History Observation Description Sex Assigned At Female Encounters Encounter Location Date Provider Diagnosis [facility]- [address] [place] [address] 11/19/2024 Sabiha Up Plan Of Treatment Next Appt Details Provider Name:Juan Gracia, 01/20/2025 11:00:00 AM, [address], [place], [address], Progress Notes * SEPTEMBERRosalbachelaDOB:2000 ([age] yo F)Acc No.[id number]:11/19/2024 Progress Note Patient: Nicolasa Austin Provider: DORITA RAMIREZ :2000 A ge:24 Y S ex:Female Date:11/19/2024 Address:[address] [place], [id number] Subjective: * Chief Complaints: * N o menses for several months * Electronic signature of Steve Up APRN on 12/11/2024 at 09:14 PM EDT Sign off status: Pending Visit Status: R /S (Rescheduled) * Provider: DORITA RAMIREZ Date: 0 11/19/2024 Generated for Joelle mercedes/Anju/Rhea on: 0 12/11/2024 09:14 PM EDT
[2024-12-11 21:10] VITALS: BP 153/100; PULSE 98; RESP 16; TEMP 36.9; O2SAT 98; BMI 50.5
--- OUTSIDE RECORDS SUMMARY | 2024-12-11 21:15 | XMS_ITS | Patient Health Record ---
Author Organization [facility] Address [address] [facility] [address] [place] [address] Care Team Providers Care Supervisor Fiber Locking Name Role Phone Sabiha Up Unavailable [phone] Reason For Referral No Information Social History Sex Assigned At : Social History Observation Description Sex Assigned At Female Social History Sexual History: Social Info Question Answer Notes Sexual History Had sex in the past 12 months (vaginal, oral, or anal)? Yes Drugs/Alcohol: Social Info Question Answer Notes Drugs Have you used drugs other than those for medical reasons in the past 12 months? No Alcohol Screen Did you have a drink containing alcohol in the past year? Yes Points 0 Interpretation Negative Tobacco Use: Social Info Question Answer Notes Tobacco Use/Smoking Are you a former smoker Tobacco use other than smoking: Are you an other tobac co user? No Plan Of Treatment Next Appt Details Provider Name:Juan Gracia, 01/20/2025 11:00:00 AM, [address], [place], [address], Insurance Providers Payer Name Payer Address Payer Phone Subscriber Number Group Number Insured Name Patient Relationship to Insured Coverage Start Date Coverage End Date Monica SPEAR [address] [place] [address] [id number] Linda Nicolasa Self - patient is the insured
--- OUTSIDE RECORDS SUMMARY | 2024-12-11 21:15 | XMS_ITS | Encounter Summary ---
Author Organization [facility] ([place], [place], [place], [place]) Address [address] [place] [address] Care Team Providers Care Clinic Coordinator Name Role Phone Susanna Russ MD Primary Care Provider Encounter Details Date Type Department Care Team (Late st Contact Info) Description 07/04/2019 Transcribed Document [facility] [address] [place] [address] ProviderKathleen MD [address] [place] [address] Social History Tobacco Use Types Packs/Day Years Used Date Smoking Tobacco: Never Assessed Comments Unknown Sex and Gender Information Value Date Recorded Sex Assigned at Not on file Legal Sex Female 6:45 PM CDT Gender Identity Not on file Sexual Orientation Not on file documented as of this encounter Miscellaneous Notes * Cerner Conversion Note - Kathleen ProviderMD - 07/04/2019 1:00 PM CONFERENCE INTERPRETER JOSE Carbajal PreOp Summary Primary Physician: JUDSON HILARIO MD-GAE Finalized Date/Time: 07/04/19 13:39:53 Pt. Name: NICOLASA MORALESANDA /Sex: 2000 Female Med Rec #: [id number] Physician: JUDSON HILARIO MD-GAE Financial #: [id number] Pt. Type: O Room/Bed: [facility] Admit/Disch: 07/04/19 12:13:00 - Institution: [facility] PreOp Case Times Entry 1 In Preop 07/04/19 13:12:00 Ready for Holding n/a Room Patient Ready for 07/04/19 13:39:00 Surgery Patient Out of Preop 07/04/19 13:39:00 Patient Out of n/a Holding Room [facility] PreOp Case Times Audit 07/04/19 13:39:52 Culinary Instructor: DANILO Modifier: [email or web address] <+> 1 Patient Out of Preop <+> 1 Patient Ready for Surgery Finalized By: JEFE Rivera, RN Document Signatures Signed By: JEFE Rivera RN 07/04/19 13:39 Electronically signed by [facility] Conversion Cyber Operator Cerner at 08/27/2022 11:42 PM CDT documented in this encounter Plan of Treatment Not on file documented as of this encounter Visit Diagnoses Not on filedocumented in this encounter Care Teams Clinic Coordinator Relationship Specialty Start Date End Date Susanna Russ MD [address] [address] PCP - General Family Medicine 04/16/23 documented as of this encounter
--- OUTSIDE RECORDS SUMMARY | 2024-12-11 21:15 | XMS_ITS | Encounter Summary ---
Author Organization [employer] ([place], [place], [place], [place]) Address [address] [place] [address] Care Team Providers Care Lens Maker Name Role Phone Susanna Russ MD Primary Care Provider [phone] Encounter Details Date Type Department Care Team (Late st Contact Info) Description 07/04/2019 Transcribed Document [facility] Family Medicine [address] [place] [address] ProviderKathleen MD [address], [place] [id number] Social History Tobacco Use Types Packs/Day Years Used Date Smoking Tobacco: Never Assessed Comments Unknown Sex and Gender Information Value Date Recorded Sex Assigned at Not on file Legal Sex Female 6:45 PM CDT Gender Identity Not on file Sexual Orientation Not on file documented as of this encounter Miscellaneous Notes * Cerner Conversion Note - Kathleen ProviderMD - 07/04/2019 2:20 PM CASTING OPERATOR JOSE Carbajal IntraOp Summary Primary Physician: JUDSON HILARIO MD-GAE Finalized Date/Time: 07/04/19 14:27:57 Pt. Name: NICOLASA MORALESANDA /Sex: 2000 Female Med Rec #: [id number] Physician: JUDSON HILARIO MD-GAE Financial #: [id number] Pt. Type: O Room/Bed: [facility] Admit/Disch: 07/04/19 12:13:00 - Institution: [facility] - Case Attendance Entry 1 Entry 2 Entry 3 Case Attendee SANCHEZ HILARIO KAREN J., RN NOE BUTLER, VON CLEMENT Role Performed Surgeon/Proceduralist, Sba Business Development Officer, First BACK JOINER/Nurse Personnel Manager First Time In 07/04/19 14:14:00 07/04/19 14:14:00 07/04/19 14:14:00 Time Out 07/04/19 14:27:00 07/04/19 14:27:00 07/04/19 14:27:00 Procedure Esophagogastroduodenosco Esophagogastroduodenosco Esophagogastroduodenosco py, Duodenal Biopsy py, Duodenal Biopsy py, Duodenal Biopsy Other Attendee Superficial Wound Closed By: Last Modified By: JUDSON BRADFORD RN TAYLOR, KAREN J., JUDSON CERDA RN 07/04/19 14:26:20 07/04/19 14:26:20 07/04/19 14:26:20 Entry 4 Case Attendee Cinthya England RN Role Performed Scrub, First Time In 07/04/19 14:14:00 Time Out 07/04/19 14:27:00 Procedure Esophagogastroduodenosco py, Duodenal Biopsy Other Attendee Superficial Wound Closed By: Sebastian Modified By: JUDSON BRADFORD RN 07/04/19 14:26:20 [facility] - Case Attendance Audit 07/04/19 14:26:20 Engineer Second Assistant: MAIK Modifier: MAIK 1 <+> Time Out 1 <*> Procedure Esophagogastroduodenoscopy, Duodenal Biopsy 2 <+> Time Out 2 <*> Procedure Esophagogastroduodenoscopy, Duodenal Biopsy 3 <+> Time Out 3 <*> Procedure Esophagogastroduodenoscopy, Duodenal Biopsy 4 <+> Time Out 4 <*> Procedure Esophagogastroduodenoscopy, Duodenal Biopsy 07/04/19 14:23:07 Engineer Second Assistant: MAIK Modifier: MAIK 1 <*> Procedure Esophagogastroduodenoscopy 2 <*> Procedure Esophagogastroduodenoscopy 3 <*> Procedure Esophagogastroduodenoscopy 4 <*> Procedure Esophagogastroduodenoscopy 07/04/19 14:17:02 Engineer Second Assistant: SANCHEZKJ Modifier: TAYLORKJ 1 <+> Time In 1 <*> Procedure Esophagogastroduodenoscopy <+> 2 Case Attendee <+> 2 Role Performed <+> 2 Time In <+> 2 Procedure <+> 3 Case Attendee <+> 3 Role Performed <+> 3 Time In <+> 3 Procedure <+> 4 Case Attendee <+> 4 Role Performed <+> 4 Time In <+> 4 Procedure 07/04/19 14:15:51 Engineer Second Assistant: SANCHEZKJ Modifier: TAYLORKJ <+> 1 Procedure [facility] - Case Times Entry 1 Patient In Room Time 07/04/19 14:14:00 Out Room Time 07/04/19 14:27:00 Anesthesia Start Time 07/04/19 14:14:00 Stop Time 07/04/19 14:27:00 Anesthesia Ready 07/04/19 14:16:00 Surgery / Procedure Times Start Time 07/04/19 14:20:00 Stop Time 07/04/19 14:25:00 Last Modified By: JUDSON BRADFORD RN 07/04/19 14:26:16 [facility] - Case Times Audit 07/04/19 14:26:16 Engineer Second Assistant: [email or web address] Modifier: SANCHEZKJ <+> 1 Out Room Time <+> 1 Stop Time <+> 1 Stop Time 07/04/19 14:20:51 Engineer Second Assistant: SANCHEZKJ Modifier: SANCHEZKJ <+> 1 Start Time [facility] - Cultures and Spec Summary Entry 1 Cultrures and Specimens Specimen Ordered: Yes Test(s) Routine/Path-Lab Requested/Final Disposition Last Modified By: JUDSON BRADFORD RN 07/04/19 14:26:56 General Comments: duodenal biopsy gastric antrum biopsy distal esophagus biopsy [facility] - Delays Entry 1 Delay Reason Other Duration 0 Minute(s) Comment NO DELAY Last Modified By: JUDSON BRADFORD RN 07/04/19 14:17:08 [facility] - Departure from OR Entry 1 Integumentary Assessment Integumentary WDL Assessment WDL Transfer/Handoff Transfer to PACU Phase I Post-op Transport Stretcher/Gunnar Via Patient Transport JUDSON BRADFORD RN, Accompanied by NOE BUTLER CRNA Last Modified By: JUDSON BRADFORD RN 07/04/19 14:17:16 [facility] - Endoscopy Details Entry 1 Abdomen Procedure Soft, Non-Tender Assessment Procedure Abdomen 07/04/19 14:17:00 Assessment D/T Radio Frequency Ablation Last Modified By: JUDSON BRADFORD RN 07/04/19 14:17:25 [facility] - Fire Risk Assessment Entry 1 Fire Info Surgical Site or 1- Yes Incision Above the Xyphoid Open O2 Source 1- Yes (Mask or Cannula) Available Ignition 1- Yes (ESU, Laser, Light Source) Fire Risk 3 Assessment Score Fire Score Fire Risk Yes Assessment Complete Fire Risk JUDSON BRADFORD RN Assessment Verified By Fire Risk 07/04/19 14:18:00 Assessment Verified Date/Time Fire Risk High Risk Protocol Yes Implemented Standard Fire Yes Safety Precautions Followed Last Modified By: JUDSON BRADFORD RN 07/04/19 14:18:51 [facility] - General Case Bark Tanner 1 Case Information [facility] Endo 03 E Case Level 1 Room Verified Yes Wound Class II - Clean-Contaminated Specialty SN Gastroenterology Anesthesia Type MAC ASA Class 2 Diagnosis Preop Diagnosis nausea dysphagia epigastric pain Postop Same As Preop No Postop Diagnosis gastritis Last Modified By: JUDSON BRADFORD RN 07/04/19 14:27:11 [facility] - General Case Data Audit 07/04/19 14:27:11 Engineer Second Assistant: SANCHEZKJ Modifier: SANCHEZKJ <+> 1 Postop Diagnosis [facility] - Intraoperative Assessment Entry 1 Valid History / Yes Physical in Chart Preoperative Yes Checklist Reviewed/Evaluated Allergies Reviewed Yes Patient is Latex No Sensitive Level of WDL Consciousness (WDL = Alert, Oriented to Person, Place, and Time) Present Upon ECG monitored Arrival to OR Last Modified By: JUDSON BRADFORD RN 07/04/19 14:18:26 [facility] - Intraoperative Equipment Entry 1 Type Scope Equipment Intraop Monitoring Electrocardiogram Three lead placement (ECG) Electrode Placement Blood Pressure Arm, left upper Location Pulse Oximeter Hand, right Probe Site Antiembolic Devices Scopes Flexible Endoscopes Gastroscope Used Scope Serial [id number] Number/Identificatio n Number Photo/Video Documentation Photo Yes Video No Last Modified By: JUDSON BRADFORD RN 07/04/19 14:18:42 [facility] - Patient Positioning Entry 1 Procedure Esophagogastroduodenosco py, Duodenal Biopsy Body Position Lateral, right side up Left Arm Position Resting at side Right Arm Position Resting at side Left Leg Position Other Right Leg Position Other Position Comments Right leg over left leg uncrossed Feet Uncrossed Yes Pressure Points Yes Checked Positioned By JUDSON BRADFORD RN Position Verified Positioning Yes Verified by Surgeon Last Modified By: JUDSON BRADFORD RN 07/04/19 14:23:09 [facility] - Patient Positioning Audit 07/04/19 14:23:09 Engineer Second Assistant: MAIK Modifier: MAIK 1 <*> Procedure Esophagogastroduodenoscopy [facility] - Sign In Entry 1 Patient, Site, Yes Procedure Identified Surgical Consent Yes Confirmed Relevant Surgical Yes Documents Available Surgical Site N/A Marked by person performing procedure Allergies Yes Airway Hypothermia Risk No Warming Measures No Taken Last Modified By: JUDSON BRADFORD RN 07/04/19 14:19:44 [facility] - Sign Out Entry 1 RN Confirmation Surgical Yes Procedure(s) Identified Instrument, Sponge N/A and Sharps Counts Correct/Documented Equipment Problems N/A Documented Specimen Labeled Yes Correctly Urinary Catheter N/A Documented in IView Safety Checklist Yes Elements Complete? RN Sign Out JUDSON BRADFORD RN Signature RN Sign Out 07/04/19 14:27:00 Signature Date/Time Plan of Care Outcome - Fire Risk OUTCOME STATEMENT: Goal met Patient is free from injury related to surgical fire Plan of Care Outcome - Pt Positioning OUTCOME STATEMENT: Goal met Absence of signs and symptoms of positioning injury. Plan of Care Outcome - Skin Prep OUTCOME STATEMENT: Goal met Intraoperative care is consistent with measures to prevent infection Plan of Care Outcome - Xray/Images OUTCOME STATEMENT: N/A Absence of observable signs or symptoms of radiation injury Plan of Care Outcome - Counts OUTCOME STATEMENT: N/A Absence of signs and symptoms of injury related to extraneous objects Last Modified By: JUDSON BRADFORD RN 07/04/19 14:27:34 [facility] - Surgical Procedures Entry 1 Entry 2 Procedure Esophagogastroduodenosco Duodenal Biopsy py Modifiers Additional Procedure Description Primary Procedure Yes No Primary Surgeon SULAIMAN HILARIO KAREN, MD-[place] Start 07/04/19 14:20:00 07/04/19 14:20:00 Stop 07/04/19 14:25:00 07/04/19 14:25:00 Physician States Cecum Reached Anesthesia Type MAC MAC Specialty SN Gastroenterology SN Gastroenterology Wound Class II - Clean-Contaminated II - Clean-Contaminated Last Modified By: JUDSON BRADFORD RN TAYLOR, KAREN J., RN 07/04/19 14:27:04 07/04/19 14:27:04 [facility] - Surgical Procedures Audit 07/04/19 14:27:04 Engineer Second Assistant: SANCHEZKJ Modifier: SANCHEZKJ <+> 1 Stop <+> 2 Stop 07/04/19 14:26:01 Engineer Second Assistant: FIONAJ Modifier: FIONAJ 1 <*> Procedure Esophagogastroduodenoscopy 1 <+> Specialty 2 <*> Procedure Duodenal Biopsy 07/04/19 14:23:03 Engineer Second Assistant: MAIK Modifier: FIONAJ <+> 1 Start <+> 2 Procedure <+> 2 Primary Procedure <+> 2 Primary Surgeon <+> 2 Specialty <+> 2 Start <+> 2 Wound Class <+> 2 Anesthesia Type [facility] - Time Out Entry 1 Procedure to be Esophagogastroduodenosco Performed py, Duodenal Biopsy Time Out Time Out Pause Time 07/04/19 14:20:00 All activity Yes suspended (unless life threatening emergency) Team Verbally Correct patient Confirms Information identity, Correct side and site are marked, Consent form is present and accurate, Agreement on the procedure to be done, Correct patient position, Relevant images/results properly labeled/appropriately displayed Antibiotic N/A Prophylaxis Administered Or In Progress Within the Last 60 Minutes Beta Emerson N/A Administered Venous N/A Thromboembolism Prophylaxis Required Anticipated Critical Events Surgeon None expected Last Modified By: JUDSON BRADFORD RN 07/04/19 14:23:09 [facility] - Time Out Audit 07/04/19 14:23:09 Engineer Second Assistant: FIONAJ Modifier: SANCHEZKJ 1 <*> Procedure to be Performed Esophagogastroduodenoscopy Case Comments <None> Finalized By: JUDSON BRADFORD RN Document Signatures Signed By: JUDSON BRADFORD RN 07/04/19 14:27 documented in this encounter Plan of Treatment Not on file documented as of this encounter Visit Diagnoses Not on filedocumented in this encounter Care Teams Lens Maker Relationship Specialty Start Date End Date Susanna Russ MD [address] [address] PCP - General Family Medicine 04/16/23 documented as of this encounter
--- OUTSIDE RECORDS SUMMARY | 2024-12-11 21:15 | XMS_ITS | Encounter Summary ---
Author Organization [employer] ([place], [place], [place], [place]) Address [address] [place] [address] Care Team Providers Care Core Oven Tender Name Role Phone Susanna Russ MD Primary Care Provider Encounter Details Date Type Department Care Team (Late st Contact Info) Description 07/04/2019 Transcribed Document [facility] [address] [place] [address] ProviderKathleen MD [address] [place] [address] Social History Tobacco Use Types Packs/Day Years Used Date Smoking Tobacco: Never Assessed Comments Unknown Sex and Gender Information Value Date Recorded Sex Assigned at Not on file Legal Sex Female 6:45 PM CDT Gender Identity Not on file Sexual Orientation Not on file documented as of this encounter Miscellaneous Notes * Cerner Conversion Note - Historical ProviderMD - 07/04/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[employer] [address] [address] NICOLASA MORALES :2000 Visit Time:07/04/2019 What to do next Your Diagnosis Dysphagia Nausea Instructions From Your Care Team Diet after Discharge: _, Do not drink any alcoholic beverages, Avoid spicey foods or fried foods Fluid Restriction after Discharge: _ Activity after Discharge: As tolerated, Rest and relax today, No strenuous activity Lifting Restrictions: _ Weight Bearing: _ Bedrest: _ Driving after Discharge: May drive today May Return to Work/School: tomorrow Showering/Bathing: May shower, _ Notify Provider of: Any questions or concerns Wound/Incision Care after Discharge: _, _ Medical Equipment for Home Use: Home Health Services: Community Services: Follow-Up Appointments Follow Up with JUDSON HILARIO MD-GAE When Only if needed Comments See procedure report for recommendations. New prescription given for OMEPRAZOLE, STOP SCRAFATE and RANITIDINE. Where: [address] [facility] [address] [place] [id number]- Medications What How Much When Instructions Next Dose omeprazole (omeprazole 40 mg oral delayed release capsule) 1 Capsule(s) Oral Every Day Duration: 30 Day(s) 30min prior to meal Printed Prescription cholecalciferol (Vitamin D3) 5,000 International Units Oral Every Day loratadine (Claritin 10 mg oral tablet) 1 Tablet(s) Oral Every Day Take your medications faithfully. Do NOT skip medication. Do NOT stop taking medications without the direction of a physician. Carry a list of your medications with you at all times, and take this medication list with you to your first follow up visit. Report any side effects. Avoid herbal remedies unless discussed with your physician. As part of your treatment plan, your physician may have prescribed a limited course of a controlled substance. This medication may be given to help people with moderate or severe pain or for other medical conditions, but there are risks involved with treatment. Common side effects may include nausea, constipation, drowsiness, sweating, itching, dry mouth, and rash. More serious side effects may include cognitive and motor impairment, like problems with thinking, concentrating, alertness, and movement (e.g. slowed reflexes), and driving and operating heavy machinery can be dangerous. It is important for you to talk to your physician if you have these side effects or questions. These controlled substances can produce physical dependence and be habit-forming if taken for an extended period of time, which means that the body has gotten used to them and may experience withdrawal symptoms if they are abruptly stopped. Withdrawal symptoms can include runny nose, sweating, goose bumps, diarrhea, abdominal cramping, rapid heartbeat, difficulty sleeping, and nervousness. Please dispose of unused and medications per pharmacy guidance. Education Materials Hiatal Hernia A hiatal hernia occurs when part of the stomach slides above the muscle that separates the abdomen from the chest (diaphragm). A person can be born with a hiatal hernia (congenital), or it may develop over time. In almost all cases of hiatal hernia, only the top part of the stomach pushes through the diaphragm. Many people have a hiatal hernia with no symptoms. The larger the hernia, the more likely it is that you will have symptoms. In some cases, a hiatal hernia allows stomach acid to flow back into the tube that carries food from your mouth to your stomach (esophagus). This may cause heartburn symptoms. Severe heartburn symptoms may mean that you have developed a condition called gastroesophageal reflux disease (GERD). What are the causes? This condition is caused by a weakness in the opening (hiatus) where the esophagus passes through the diaphragm to attach to the upper part of the stomach. A person may be born with a weakness in the hiatus, or a weakness can develop over time. What increases the risk? This condition is more likely to develop in: ??? Older people. Age is a major risk factor for a hiatal hernia, especially if you are over the age of 50. ??? women. ??? People who are overweight. ??? People who have frequent constipation. What are the signs or symptoms? Symptoms of this condition usually develop in the form of GERD symptoms. Symptoms include: ??? Heartburn. ??? Belching. ??? Indigestion. ??? Trouble swallowing. ??? Coughing or wheezing. ??? Sore throat. ??? Hoarseness. ??? Chest pain. ??? Nausea and vomiting. How is this diagnosed? This condition may be diagnosed during testing for GERD. Tests that may be done include: ??? X-rays of your stomach or chest. ??? An upper gastrointestinal (GI) series. This is an X-ray exam of your GI tract that is taken after you swallow a chalky liquid that shows up clearly on the X-ray. ??? Endoscopy. This is a procedure to look into your stomach using a thin, flexible tube that has a tiny camera and light on the end of it. How is this treated? This condition may be treated by: ??? Dietary and lifestyle changes to help reduce GERD symptoms. ??? Medicines. These may include: ? Hldt-klf-fzuoxsb antacids. ? Medicines that make your stomach empty more quickly. ? Medicines that block the production of stomach acid (H2 blockers). ? Stronger medicines to reduce stomach acid (proton pump inhibitors). ??? Surgery to repair the hernia, if other treatments are not helping. If you have no symptoms, you may not need treatment. Follow these instructions at home: Lifestyle and activity ??? Do not use any products that contain nicotine or tobacco, such as cigarettes and e-cigarettes. If you need help quitting, ask your health care provider. ??? Try to achieve and maintain a healthy body weight. ??? Avoid putting pressure on your abdomen. Anything that puts pressure on your abdomen increases the amount of acid that may be pushed up into your esophagus. ? Avoid bending over, especially after eating. ? Raise the head of your bed by putting blocks under the legs. This keeps your head and esophagus higher than your stomach. ? Do not wear tight clothing around your chest or stomach. ? Try not to strain when having a bowel movement, when urinating, or when lifting heavy objects. Eating and drinking ??? Avoid foods that can worsen GERD symptoms. These may include: ? Fatty foods, like fried foods. ? [place] fruits, like oranges or lemon. ? Other foods and drinks that contain acid, like orange juice or tomatoes. ? Spicy food. ? Chocolate. ??? Eat frequent small meals instead of three large meals a day. This helps prevent your stomach from getting too full. ? Eat slowly. ? Do not lie down right after eating. ? Do not eat 1???2 hours before bed. ??? Do not drink beverages with caffeine. These include cola, coffee, cocoa, and tea. ??? Do not drink alcohol. General instructions ??? Take kjxv-cup-iaihwmn and prescription medicines only as told by your health care provider. ??? Keep all follow-up visits as told by your health care provider. This is important. Contact a health care provider if: ??? Your symptoms are not controlled with medicines or lifestyle changes. ??? You are having trouble swallowing. ??? You have coughing or wheezing that will not go away. Get help right away if: ??? Your pain is getting worse. ??? Your pain spreads to your arms, neck, jaw, teeth, or back. ??? You have shortness of breath. ??? You sweat for no reason. ??? You feel sick to your stomach (nauseous) or you vomit. ??? You vomit blood. ??? You have bright red blood in your stools. ??? You have black, tarry stools. This information is not intended to replace advice given to you by your health care provider. Make sure you discuss any questions you have with your health care provider. Document Released: 07/20/2004 Document Revised: 12/03/2017 Document Reviewed: 12/03/2017 [employer] Interactive Patient Education ?? 2019 txtr. Gastritis, Adult Gastritis is swelling (inflammation) of the stomach. When you have this condition, you can have these problems (symptoms): ??? Pain in your stomach. ??? A burning feeling in your stomach. ??? Feeling sick to your stomach (nauseous). ??? Throwing up (vomiting). ??? Feeling too full after you eat. It is important to get help for this condition. If you do not get help, your stomach can bleed, and you can get sores (ulcers) in your stomach. Follow these instructions at home: ??? Take vkqx-gbt-rrshrlb and prescription medicines only as told by your doctor. ??? If you were prescribed an antibiotic medicine, take it as told by your doctor. Do not stop taking it even if you start to feel better. ??? Drink enough fluid to keep your pee (urine) pale yellow. ??? Instead of eating big meals, eat small meals often. ??? Avoid foods and drinks that make your symptoms worse. Contact a doctor if: ??? Your problems get worse. ??? Your problems go away and then come back. Get help right away if: ??? You throw up blood or something that looks like coffee grounds. ??? You have black or dark red poop (stools). ??? You throw up any time you try to take a drink. ??? Your stomach pain gets worse. ??? You have a fever. ??? You do not feel better after 1 week. Summary ??? Gastritis is swelling (inflammation) of the stomach. ??? It is important to get help for this condition. If you do not get help, your stomach can bleed, and you can get sores (ulcers) in your stomach. ??? Take iiay-snh-jzuqddq and prescription medicines only as told by your doctor. This information is not intended to replace advice given to you by your health care provider. Make sure you discuss any questions you have with your health care provider. Document Released: 10/16/2008 Document Revised: 12/11/2017 Document Reviewed: 01/22/2016 [employer] Interactive Patient Education ?? 2019 [employer] Esophagogastroduodenoscopy, Care After Refer to this sheet in the next few weeks. These instructions provide you with information about caring for yourself after your procedure. Your health care provider may also give you more specific instructions. Your treatment has been planned according to current medical practices, but problems sometimes occur. Call your health care provider if you have any problems or questions after your procedure. What can I expect after the procedure? After the procedure, it is common to have: ??? A sore throat. ??? Nausea. ??? Bloating. ??? Dizziness. ??? Fatigue. Follow these instructions at home: ??? Do not eat or drink anything until the numbing medicine (local anesthetic) has worn off and your gag reflex has returned. You will know that the local anesthetic has worn off when you can swallow comfortably. ??? Do not drive for 24 hours if you received a medicine to help you relax (sedative). ??? If your health care provider took a tissue sample for testing during the procedure, make sure to get your test results. This is your responsibility. Ask your health care provider or the department performing the test when your results will be ready. ??? Keep all follow-up visits as told by your health care provider. This is important. Contact a health care provider if: ??? You cannot stop coughing. ??? You are not urinating. ??? You are urinating less than usual. Get help right away if: ??? You have trouble swallowing. ??? You cannot eat or drink. ??? You have throat or chest pain that gets worse. ??? You are dizzy or light-headed. ??? You faint. ??? You have nausea or vomiting. ??? You have chills. ??? You have a fever. ??? You have severe abdominal pain. ??? You have black, tarry, or bloody stools. This information is not intended to replace advice given to you by your health care provider. Make sure you discuss any questions you have with your health care provider. Document Released: 04/16/2013 Document Revised: 10/05/2016 Document Reviewed: 03/23/2016 [employer] Interactive Patient Education ?? 2019 txtr. Emergency Awareness and Preventative Care STROKE is an EMERGENCY Every Minute Counts Act FAST and Check for these signs: FACE Does the face look uneven? ARM Does one arm drift down? SPEECH Does their speech sound strange? TIME Call at any sign of stroke Stroke Risk Factors Atrial Fibrillation (irregular heartbeat) Diabetes Family history of stroke Heart Disease Heavy alcohol use High Blood Pressure High Cholesterol Physical inactivity and obesity Smoking Cigarette Smoking The facts are clear, cigarette smoking will shorten your life. Smoking can cause many illnesses along the way. As a healthcare provider, we recommend that you stop smoking. Assistance with quitting is available by contacting 4-763-YSGTCamilooNOW. This is a free resource providing counseling, support, and referral. Or you may contact your personal physician. National Suicide Prevention Lifeline: The National Suicide Prevention Lifeline is a national network of local crisis centers that provides free and confidential emotional support to people in suicidal crisis or emotional distress 24 hours a day, 7 days a week. Don't Wait! Stop a Heart Attack Before it Starts What is a heart attack? A heart attack is damage or to a part of the heart from severely decreased or lack of blood flow to the heart. Over time, arteries can become narrow from the buildup of fat and cholesterol, which is called plaque. The plaque can rupture causing a blood clot to form. When the blood clot forms, the artery can become severely narrowed or completely blocked, causing a heart attack. Heart attack is the leading cause of in the [place]. 85% of muscle damage occurs within the first 2 hours. Delay in the recognition of heart attack symptoms increases the chances of . Know the early symptoms of a heart attack: Nausea Feeling of fullness in chest Jaw Pain Pain that travels down one or both arms Fatigue/being tired Anxiety Back Pain Chest pressure, squeezing, or discomfort Shortness of breath Sweating, or a cold sweat Feeling of impending doom There are unusual signs of a heart attack, too! Women, the elderly, and diabetics may present with atypical symptoms: Fainting/dizziness Weakness Confusion Risk Factors for a Heart Attack Some heart disease risk factors, such as age and family history, cannot be changed. Others, like smoking and lack of exercise, can be changed. Smoking High Cholesterol High Blood Pressure Family History Obesity Age Gender (Males are at higher risk) Lack of Exercise Diabetes Diet Stress Excessive Alcohol Intake If you or someone you know is experiencing the signs and symptoms of a heart attack, DON???T DELAY. Call immediately and seek help. If someone collapses, perform CPR! Do not attempt to drive if you are having symptoms of heart attack. Hands-Only CPR Why Hands-Only CPR? Hands-Only CPR has been shown to be as effective as conventional CPR for cardiac arrests that occur outside of a hospital. Survival depends on immediately receiving CPR from someone nearby. How do you perform Hands-Only CPR? There are two easy steps: Call if you see a teen or adult collapse Push hard and fast in the center of the chest at a beat of 100 beats per minute. Save a life! 4 WAYS TO GET AHEAD OF SEPSIS SEPSIS is a MEDICAL EMERGENCY. Time matters! Infections put you and your family at risk for a life-threatening condition called sepsis. Sepsis is the body's extreme response to an infection. It is life-threatening, and without timely treatment, sepsis can rapidly lead to tissue damage, organ failure, and . Sepsis happens when an infection you already have-in your skin, lungs, urinary tract or somewhere else-triggers a chain reaction throughout your body. 1 PREVENT INFECTIONS Take good care of chronic conditions. Talk to your doctor about getting the recommended vaccines. 2 PRACTICE GOOD HYGIENE Wash your hands frequently. Keep cuts or open sores clean and covered until they are healed. 3 KNOW THE SYMPTOMS Confusion or disorientation Shortness of breath High heart rate Fever, shivering, or feeling very cold Extreme pain or discomfort Clammy or sweaty skin 4 ACT FAST Get medical care IMMEDIATELY if you suspect sepsis or if you have an infection that is not getting better or is getting worse. To learn more about sepsis and how to prevent infections, visit www.cdc.gov/sepsis. Test Results Laboratory or Other Results This Visit (last charted value for your 07/04/2019 visit) No Laboratory or Other Results This Visit Patient Name:SEPTEMBERNICOLASA I have received this information and was given the opportunity to ask questions. Patient/Assistant Elementary Teacher Name: Patient/Assistant Elementary Teacher Signature: Relationship to Patient: Clinician/Hospital Assistant Elementary Teacher Signature: Date: documented in this encounter Plan of Treatment Not on file documented as of this encounter Visit Diagnoses Not on filedocumented in this encounter Care Teams Core Oven Tender Relationship Specialty Start Date End Date Susanna Russ MD [address] [facility] [place] [address] [place] [address] PCP - General Family Medicine 04/16/23 documented as of this encounter
--- OUTSIDE RECORDS SUMMARY | 2024-12-11 21:15 | XMS_ITS | Encounter Summary ---
Author Organization [employer] ([place], [place], [place], [place]) Address [address] [place] [address] Care Team Providers Care Foreign Banknote Teller Trader Name Role Phone Susanna Russ MD Primary Care Provider Encounter Details Date Type Department Care Team (Late st Contact Info) Description 07/04/2019 Transcribed Document [facility] [place] Family Medicine [address] [place] [address] ProviderKathleen MD [address] [place] [address] Social History Tobacco Use Types Packs/Day Years Used Date Smoking Tobacco: Never Assessed Comments Unknown Sex and Gender Information Value Date Recorded Sex Assigned at Not on file Legal Sex Female 6:45 PM CDT Gender Identity Not on file Sexual Orientation Not on file documented as of this encounter Miscellaneous Notes * Cerner Conversion Note - Historical ProviderMD - 07/04/2019 1:30 PM COACH MECHANIC Pre Procedure Adult Entered On: 07/04/2019 13:36 EST Performed On: 07/04/2019 13:30 EST by JEFE Rivera RN Height and Weight, Clinical Dosing Height Source : Stated Height Entry Format : Nance Height, Feet : 0 ft(Converted to: 0 cm, 0 Inch) Height, Inches : 62 Inch(Converted to: 5 ft 2 Inch, 157.48 cm) Clinical Height : 157.48 cm Weight Source : Standing scale Weight Entry Format : Nance Clinical Dosing Weight : 101.27 kg Weight, Pounds : 222.8 lb Body Surface Area (BSA) : 2 m2 Body Mass Index : 40.8 kg/m2 (>HHI) [place] Body Weight : 50 kg JEFE Rivera RN - 07/04/2019 13:30 EST Health Histories Smoking Status : Never (less than 100 in lifetime; none in last 30 days) Smokeless Tobacco Status : Never JEFE Rivera RN - 07/04/2019 13:30 EST Social History (As Of: 07/04/2019 13:36:01 EST) Tobacco: Never (less than 100 in lifetime) Smoking Status. Never Smokeless Tobacco Status. (Last Updated: 07/04/2019 13:30:38 EST by JEFE Rivera RN) Alcohol: Alcohol Use History No. (Last Updated: 07/04/2019 13:30:41 EST by JEFE Rivera RN) Substance Abuse: Drug Use Hx: No. Use in Last 12 Months: No. (Last Updated: 07/04/2019 13:30:45 EST by JEFE Rivera RN) Nutrition/Health: Caffeine intake amount: 2-3 cups daily. (Last Updated: 07/04/2019 13:30:53 EST by JEFE Rivera RN) Infectious Disease History Physical contact outside US in the last 30 days : No Infectious Disease History : Chicken pox/Shingles, Influenza Tuberculosis Symptoms : None JEFE Rivera RN - 07/04/2019 13:30 EST Anesthesia/Transfusion History Family History of Anesthesia Reaction : No prior transfusion(s) Transfusion History : Prior anesthesia without reaction Family History of Anesthesia Reaction : None JEEF Rivera RN - 07/04/2019 13:30 EST Functional Assessment Living Situation : Home Patient Lives With : Friend(s) Current Home Treatments : None JEFE Rivera RN - 07/04/2019 13:30 EST [place] Suicide Severity Rating Scale (C-SSRS) CSSRS Past Month Wish to be : No CSSRS Past Month Suicidal Thoughts : No CSSRS Lifetime Suicide Behavior : No Suicide Severity Rating Score : 0 Suicide Severity Rating : No Additional Care Required at this time JEFE Rivera RN - 07/04/2019 13:30 EST Psychosocial History Currently in Unsafe Situation : No JEFE Rivera RN - 07/04/2019 13:30 EST Advance Directive Patient has Advance Directive *Q : No, patient refuses Advance Directive information JEFE Rivera RN - 07/04/2019 13:30 EST Teaching/Learning Assessment Barriers To Learning : None evident Individuals Taught : Patient Readiness to Learn : Cooperative Highest Level of Education : Some college Baseline Knowledge of Topic : Good Readiness to Learn : Explanation JEFE Rivera RN - 07/04/2019 13:30 EST General Info Want Family/Rep/Phys Notified of Admit : Yes Name/Contact Info Fam/Rep Notified Adm : na Name/Contact Info Physician Notified Adm : Susanna Tadeoqvi Emergency Contact #1 : Madelainegus Mezafan Emergency Contact #1 Emergency Contact #1 Relationship : roommate Emergency Contact #2 : none Emergency Contact #2 Phone Number : none Emergency Contact #2 Relationship : none Information Obtained From : Patient Primary Language : Chinese Communication Barrier : None Objects to Sharing Info w Family : No JEFE Rivera RN - 07/04/2019 13:30 EST Sleep Apnea Risk Assmt Hx of Obstructive Sleep Apnea Diagnosis : No Snore Loudly : No Tired, Fatigued, or Sleepy During Day : Yes Observed Stopping Breathing During Sleep : No Have/Are Being Treated for Hypertension : No BMI Greater Than 35 kg/m2 : No Age over 50 Years Old : No Neck Circumference Greater Than 40 cm : No Gender Male : No STOP-BANG Sleep Apnea Risk Level Score : 1 JEFE Rivera RN - 07/04/2019 13:30 EST Amrik Scale Amrik Sensory Perception : No impairment Amrik Moisture : Rarely moist Amrik Activity : Walks frequently Amrik Mobility : No limitation Amrik Nutrition : Adequate Amrik Friction and Shear : No apparent problem Amrik Score : 22 JEFE Rivera RN - 07/04/2019 13:30 EST Pain Assessment Pain Assessment : Initial assessment Pain Scale Goal : 3 Pain Scale Used : 0-10 Scale JEFE Rivera RN - 07/04/2019 13:30 EST Fall Risk Scales ABCs Fall Injury Risk Identification : None GRACE Hx Falls Immediate/Within 3 Months : No Grace Secondary Diagnosis : No GRACE Use of Ambulatory Aid : None GRACE IV Therapy or IV Access : Yes Grace Gait/Transferring : Normal, bedrest, immobile Grace Mental Status : Oriented to own ability Grace Fall Risk Score : 20 GRACE Fall Scale Risk Level : 0-24 Low Risk [place] Fall Interventions : Adequate lighting, Bed in low position, Call device within reach, Fall prevention handout/education per facility policy, Frequent orientation to call device, Frequent orientation to surroundings, Hourly comfort/safety rounds, Non-slip footwear, Personal items within reach, Reinforced to call for assistance before getting out of bed, Room free of clutter/spills, Upper side-rails up, Wheels locked, Wires/Cords secured JEFE Rivera RN - 07/04/2019 13:30 EST Valuables and Belongings Valuables and Belongings : Clothing, Jewelry, Personal devices Clothing : Common streetwear Clothing Disposition : Bedside Personal Device Disposition : Bedside Jewelry : Body rings/chains Jewelry Disposition : Bedside, With patient Personal Devices : Glasses JEFE Rivera RN - 07/04/2019 13:30 EST Pain Scale Intensity : 0 JEFE Rivera RN - 07/04/2019 13:30 EST Image 4 - Images currently included in the form version of this document have not been included in the text rendition version of the form. documented in this encounter Plan of Treatment Not on file documented as of this encounter Visit Diagnoses Not on filedocumented in this encounter Care Teams Foreign Banknote Teller Trader Relationship Specialty Start Date End Date Susanna Russ MD [address] [address] PCP - General Family Medicine 04/16/23 documented as of this encounter
--- OUTSIDE RECORDS SUMMARY | 2024-12-11 21:15 | XMS_ITS | Encounter Summary ---
Author Organization [employer] ([place], [place], [place], [place]) Address [address] [place] [address] Care Team Providers Care Engineer First Assistant Name Role Phone Susanna Russ MD Primary Care Provider [phone] Reason for Referral * Ultrasound (Routine) - Closed Specialty Diagnoses / Procedures Referred By Contac t Referred To Contact Diagnoses Abdominal pain, unspecified abdominal location Procedures Ultrasound gallbladder Susanna Russ MD [address] [place] [address] Phone: tel: fax: Referral ID Status Reason Start Date Expiration Date Visits Re quested Visits Authorized [id number] Closed 04/13/2023 10/10/2023 1 1 Encounter Details Date Type Department Care Team (Late st Contact Info) Description 04/13/2023 Outside Orders [facility] Central Scheduling [address] [place] [address] Susanna Russ MD [address] [place] [address] Abdominal pain, unspecified abdominal location (Primary Dx) Social History Tobacco Use Types Packs/Day Years Used Date Smoking Tobacco: Never Assessed Food Insecurity Answer Date Recorded Food run out past 12 months Not on file 05/14 Food did not last past 12 months Not on file 05/26/2023 Employment Answer Date Recorded Help finding and keeping a job Not on file 0 05/26/2023 Family and Community Support Answer Kalyan e Recorded Help with Day to Day Activities Not on file 05/26/2023 Feeling Lonely or Isolated Not on file 05/26 Educational Attainment Answer Date Storm rded Speak language other than Belarusian at home Not on file 05/26/2023 Want help with school or training Not on file 05/26/2023 Substance Use Answer Date Recorded Used prescription meds for non-medical reasons N ot on file 05/26/2023 Used illegal drugs past 12 months Not on file 05/26/2023 Comments Unknown Sex and Gender Information Value Date Recorded Sex Assigned at Not on file Legal Sex Female 6:45 PM CDT Gender Identity Not on file Sexual Orientation Not on file documented as of this encounter Plan of Treatment Not on file documented as of this encounter Results * Ultrasound gallbladder (04/17/2023 8:45 AM EST) Anatomical Region Laterality Modality Abdomen Ultrasound 04/17/2023 9:32 AM EST Impressions 04/17/2023 9:42 AM EST Fatty liver. Otherwise unremarkable. Images reviewed, interpreted, and dictated by Dr. Aakash Yang. Transcribed by Su Mcdowell PA-C. Narrative 04/17/2023 9:42 AM EST GALLBLADDER ULTRASOUND. HISTORY: Right upper quadrant pain. PROCEDURE: Ultrasound images of the gallbladder were obtained. FINDINGS: The liver parenchyma is diffusely fatty infiltrated. The gallbladder is well visualized and the wall appears normal. There are no gallstones. The common duct is normal. Procedure Note Robbi Yang MD - 04/17/2023 GALLBLADDER ULTRASOUND. HISTORY: Right upper quadrant pain. PROCEDURE: Ultrasound images of the gallbladder were obtained. FINDINGS: The liver parenchyma is diffusely fatty infiltrated. The gallbladder is well visualized and the wall appears normal. There are no gallstones. The common duct is normal. IMPRESSION: Fatty liver. Otherwise unremarkable. Images reviewed, interpreted, and dictated by Dr. Aakash Yang. Transcribed by Su Mcdowell PA-C. Susanna Russ MD [facility] Final Result documented in this encounter Visit Diagnoses Diagnosis Abdominal pain, unspecified abdominal location- Primary Abdominal pain, unspecified abdominal location documented in this encounter Care Teams Engineer First Assistant Relationship Specialty Start Date End Date Susanna Russ MD [address] [address] PCP - General Family Medicine 04/16/23 documented as of this encounter
--- OUTSIDE RECORDS SUMMARY | 2024-12-11 21:15 | XMS_ITS | Clinical Summary ---
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 Active fluticasone (FLONASE) 50 MCG/ACT nasal spray SPRAY 1 2 SPRAYS IN EACH NOSTRIL EVERY DAY NEEDED 2 9 Active loratadine (CLARITIN) 10 MG tablet Take 1 tablet by mouth Daily. 2 9 Active ibuprofen (ADVIL,MOTRIN) 600 MG tablet Take 1 tablet by mouth Every 6 (Six) Hours As Needed for Moderate Pain . 30 tablet 0 Active Cholecalciferol (Vitamin D3) 50 MCG (2000 UT) capsule 1 po QDay Active EPINEPHrine (EPIPEN) 0.3 MG/0.3ML solution auto-injector injection INJECT CONTENTS OF 1 PEN NEEDED FOR ALLERGIC REACTION 4 Active topiramate (TOPAMAX) 25 MG tablet Take 1 tablet by mouth Daily. Active omeprazole (priLOSEC) 40 MG capsuleIndicatio ns:Gastroesophag eal reflux disease, unspecified whether esophagitis present 1 po daily in the am 30 minutes before breakfast 30 capsule 3 4 Active ondansetron (ZOFRAN) 4 MG tabletIndication s:Nausea and vomiting, unspecified vomiting type Take 1 tablet by mouth Every 8 (Eight) Hours As Needed for Nausea or Vomiting. 30 tablet 1 4 Active dicyclomine (BENTYL) 20 MG tabletIndication s:Right upper quadrant abdominal pain Take 1 tablet by mouth 3 (Three) Times a Day As Needed for Abdominal Cramping. 30 tablet 1 4 Active Active Problems Problem Noted Date Diagnosed Date Nausea and vomiting 01/28/2024 Elevated liver function tests 01/28/2024 Fatty (change of) liver, not elsewhere classifie d 01/28/2024 Class 3 severe obesity due t o excess calories without serious comorbidity with body mass index (BMI) of 40.0 to 44.9 in adult 01/28/2024 Rectal bleeding 01/28/2024 Diarrhea 01/28/2024 Right upper quadrant abdominal pain 09/04/2018 Overview (09/04/2018): Added automatically from request for surgery [id number] Gastroesophageal reflux disease 09/04/2018 Overview (09/04/2018): Added automatically from request for surgery [id number] Family History Medical History Relation Name Comments Colon cancer Neg Hx Inflammatory bowel disease Neg Hx Social History Tobacco Use Types Packs/Day Years Used Date Smoking Tobacco: Never Smokeless Tobacco: Never Tobacco Cessation:Counseling Given: Not Answered Alcohol Use Standard Drinks/Week Comments No 0 (1 standard drink = 0.6 oz pur e alcohol) Abuse Screen Answer Date Recorded Feels Unsafe at Home or Work/School no 02/12/2024 Feels Threatened by Someone no 05/2023 Does Anyone Try to Keep You From Having Contact with Others or Doing Things Outside Your Home? no 02/12/2024 Physical Signs of Abuse Present no 02/12/2024 Housing Stability Answer Date Recorded Current Living Arrangements Not on file 02/11 Potentially Unsafe Housing Conditions Not on matt e 02/22/2023 Family and Community Support Answer Kalyan e Recorded Help with Day-to-Day Activities Not on file 02/22/2023 Lonely or Isolated Not on file 02/22/2023 Employment Answer Date Recorded Do you want help finding or keeping work or a pineda b? Not on file 02/22/2023 Disabilities Answer Date Recorded Concentrating, Remembering, or Making Decisions Difficulty Not on file 02/22/2023 Doing Errands Independently Difficulty Not on fi le 02/22/2023 Education Answer Date Recorded Help with school or training? Not on file Preferred Language Not on file 02/22/2023 Comments Unknown Sex and Gender Information Value Date Recorded Sex Assigned at Not on file Legal Sex Female 12:17 PM EDT Gender Identity Not on file Sexual Orientation Not on file Last Filed Vital Signs Vital Sign Reading Time Taken Comments Blood Pressure 105/57 02/12/2024 3:17 PM EDT Pulse 81 02/12/2024 3:17 PM EDT Temperature 37.1 C (98.7 F) 02/12/2024 1:22 PM EDT Respiratory Rate 16 02/12/2024 3:17 PM EDT Oxygen Saturation 98% 02/12/2024 3:17 PM EDT Inhaled Oxygen Concentration - - Weight 118 kg (260 lb) 01/28/2024 10:22 AM EDT Height 165.1 cm (5' 5 ) 01/28/2024 10:22 AM EDT Body Mass Index 43.27 01/28/2024 10:22 AM EDT Plan of Treatment Health Maintenance Due Date Last Done Comments Annual Gynecologic Pelvic and Breast Exam 1999 HPV VACCINES (1 - 3-dose series) 2014 Pneumococcal Vaccine 0-49 (1 of 2 - PCV) 2018 TDAP/TD VACCINES (1 - Tdap) 2018 ANNUAL PHYSICAL 09/02/2018 HEPATITIS C SCREENING 09/02/2018 PAP SMEAR 2020 COVID-19 Vaccine ( - season) 2024 INFLUENZA VACCINE 02/11/2025 Insurance [employer] Care Teams Floor Press Operator Relationship Specialty Start Date End Date Susanna Russ MD [facility] [place] [address] PCP - General Family Medicine 06/19/19
--- OUTSIDE RECORDS SUMMARY | 2024-12-11 21:15 | XMS_ITS | Encounter Summary ---
Author Organization [employer] ([place], [place], [place], [place]) Address [address] [place] [address] Care Team Providers Care Production Welder Name Role Phone Susanna Russ MD Primary Care Provider Encounter Details Date Type Department Care Team (Late st Contact Info) Description 07/04/2019 Transcribed Document [facility] [place] Family [place] [address] ProviderKathleen MD [address] [place] [address] Social History Tobacco Use Types Packs/Day Years Used Date Smoking Tobacco: Never Assessed Comments Unknown Sex and Gender Information Value Date Recorded Sex Assigned at Not on file Legal Sex Female 6:45 PM CDT Gender Identity Not on file Sexual Orientation Not on file documented as of this encounter Miscellaneous Notes * Cerner Conversion Note - Kathleen ProviderMD - 07/04/2019 2:[address] SUPERVISOR Patient Education Materials Follows: Hiatal Hernia A hiatal hernia occurs when [...] symptoms. ??? Medicines. These may include: ? Eglz-nkn-goylkbe antacids. ? Medicines that make your stomach [...] ? Fatty foods, like fried foods. ? Diggins fruits, like oranges or lemon. ? Other foods and drinks that contain acid, like orange juice or tomatoes. ? Spicy food. ? Chocolate. ??? Eat frequent small meals instead of three large meals a day. This helps prevent your stomach from getting too full. ? Eat slowly. ? Do not lie down right after eating. ? Do not eat 1?2 hours before bed. ??? Do not drink beverages with caffeine. These include cola, coffee, cocoa, and tea. ??? Do not drink alcohol. General instructions ??? Take tiha-qld-kdqsrfx and prescription medicines only as told by [...] 07/20/2004 Document Revised: 12/03/2017 Document Reviewed: 12/03/2017 [employer] Interactive Patient Education ? 2019 [employer]. Gastritis, Adult Gastritis is swelling (inflammation) of [...] Follow these instructions at home: ??? Take itgw-oiy-ybbyhmq and prescription medicines only as told by [...] sores (ulcers) in your stomach. ??? Take nkxc-hfb-opnrvzg and prescription medicines only as told by your doctor. This information is not intended to replace advice given to you by your health care provider. Make sure you discuss any questions you have with your health care provider. Document Released: 10/16/2008 Document Revised: 12/11/2017 Document Reviewed: 01/22/2016 [employer] Interactive Patient Education ? 2019 [employer]. Esophagogastroduodenoscopy, Care After Refer to this sheet [...] 04/16/2013 Document Revised: 10/05/2016 Document Reviewed: 03/23/2016 [employer] Interactive Patient Education ? 2019 [employer] documented in this encounter Plan of Treatment Not on file documented as of this encounter Visit Diagnoses Not on filedocumented in this encounter Care Teams Production Welder Relationship Specialty Start Date End Date Susanna Russ MD [address] [address] PCP - General Family Medicine 04/16/23 documented as of this encounter
--- OUTSIDE RECORDS SUMMARY | 2024-12-11 21:15 | XMS_ITS | Clinical Summary ---
Author Organization [employer] ([place], [place], [place], [place]) Address [address] [place] [address] Care Team Providers Care Video Game Designer Name Role Phone Susanna Russ MD Primary Care Provider [phone] Social History Tobacco Use Types Packs/Day Years [...] Date Storm rded Speak language other than Algerian at home Not on file 05/26/2023 Want [...] Orientation Not on file Plan of Treatment Health Maintenance Due Date Last Done Comments Depression Screening (12+) 2011 Tobacco Cessation Counseling and Screening (12+) 2011 HIV Screening 2014 Hepatitis C Screening 2017 DTAP/TDAP/TD VACCINES (1 - Tdap) 2018 Pap Smear 2020 COVID-19 VACCINE (1 - 2023-2 5 season) 2024 Influenza Vaccine (#1) 2025 Pneumococcal Vaccine: 0-49 Years Aged Out No longer eligible based on patient's age to complete this topic Insurance GENERIC COMMERCIAL [facility] Care Teams Video Game Designer Relationship Specialty Start Date End Date Susanna Russ MD [address] [facility] [address] [place] [address] PCP - General Family Medicine 04/16/23
--- OUTSIDE RECORDS SUMMARY | 2024-12-11 21:15 | XMS_ITS | Referral Summary ---
Author Organization [employer] ([place], [place], [place], [place]) Address [address] [place] [address] Care Team Providers Care Beehive Kiln Charcoal Burner Name Role Phone Susanna Russ MD Primary Care Provider [phone] Social History Tobacco Use Types Packs/Day Years [...] Date Storm rded Speak language other than French at home Not on file 05/26/2023 Want [...] file Plan of Treatment Not on file Insurance GENERIC COMMERCIAL [facility] Care Teams Beehive Kiln Charcoal Burner Relationship Specialty Start Date End Date Susanna Russ MD [address] [place] [id number] PCP - General Family Medicine 04/16/23
--- OUTSIDE RECORDS SUMMARY | 2024-12-11 21:15 | XMS_ITS | Encounter Summary ---
Author Organization [employer] ([place], [place], [place], [place]) Address [address] [place] [address] Care Team Providers Care Annealing Torch Operator Name Role Phone Susanna Russ MD Primary Care Provider Encounter Details Date Type Department Care Team (Late st Contact Info) Description 07/04/2019 Transcribed Document [facility] [place] [facility] [place] [address] ProviderKathleen MD [address] [place], [place] [id number] Social History Tobacco Use Types Packs/Day Years Used Date Smoking Tobacco: Never Assessed Comments Unknown Sex and Gender Information Value Date Recorded Sex Assigned at Not on file Legal Sex Female 6:45 PM CDT Gender Identity Not on file Sexual Orientation Not on file documented as of this encounter Miscellaneous Notes * Cerner Conversion Note - Kathleen ProviderMD - 07/04/2019 2:20 PM KENO WRITER [facility] PACU Summary Primary Physician: JUDSON HILARIO MD-GAE Finalized Date/Time: 07/04/19 15:06:55 Pt. Name: NICOLASA MORALES TOMASZ /Sex: 2000 Female Med Rec #: [id number] Physician: JUDSON HILARIO MD-GAE Financial #: [id number] Pt. Type: O Room/Bed: [facility] Admit/Disch: 07/04/19 12:13:00 - Institution: [facility] PACU Case Times Entry 1 In PACU I 07/04/19 14:33:00 Ready for PACU 07/04/19 15:03:00 Discharge Discharge from PACU 07/04/19 15:08:00 I [facility] PACU Case Times Audit 07/04/19 15:06:53 Lap Cutter Truer Operator: [id number] Modifier: [id number] <+> 1 Discharge from PACU I 07/04/19 15:03:23 Lap Cutter Truer Operator: [id number] Modifier: [id number] <+> 1 Ready for PACU Discharge Finalized By: Alyce Dunham, RN Document Signatures Signed By: Alyce Dunham RN 07/04/19 15:06 documented in this encounter Plan of Treatment Not on file documented as of this encounter Visit Diagnoses Not on filedocumented in this encounter Care Teams Annealing Torch Operator Relationship Specialty Start Date End Date Susanna Russ MD [address] [address] PCP - General Family Medicine 04/16/23 documented as of this encounter
[2024-12-11 21:20] VITALS: BP 141/95; PULSE 85; O2SAT 97
--- NOTE | 2024-12-11 21:34 | CT_ITS ---
PROCEDURE INFORMATION: Exam: CT Head Without Contrast Exam date and time: 12/11/2024 10:44 PM Age: 24 years old Clinical indication: Pain; Headache; Additional info: Migraine new features TECHNIQUE: Imaging protocol: Computed tomography of the head without contrast. Radiation optimization: All CT scans at this facility use at least one of these dose optimization techniques: automated exposure control; mA and/or kV adjustment per patient size (includes targeted exams where dose is matched to clinical indication); or iterative reconstruction. COMPARISON: No relevant prior studies available. FINDINGS: Brain: Normal. No hemorrhage. Unremarkable white matter. No mass effect. Cerebral ventricles: No ventriculomegaly. Paranasal sinuses: Visualized sinuses are unremarkable. No fluid levels. Mastoid air cells: Visualized mastoid air cells are well aerated. Bones: Unremarkable. No acute fracture. Soft tissues: Unremarkable. IMPRESSION: No acute intracranial abnormality.
[2024-12-11 21:40] VITALS: BP 132/98; PULSE 82; O2SAT 99
[2024-12-11] MEDS: ACETAMINOPHEN 1,000MG/100ML VIAL 1000 MG IV (21:44)
[2024-12-11] MEDS: LACTATED RINGERS 1000ML 1,000 ML 999 ML IV (21:44)
[2024-12-11] MEDS: KETOROLAC 30MG/ML VIAL 15 MG IV (21:45)
[2024-12-11 22:00] VITALS: PULSE 81; O2SAT 98
--- NOTE | 2024-12-11 22:08 | ECG_ITS ---
APPROVED REPORT Exam: Resting ECG HR:79 bpm ECG Measurements Heart Rate 79 AXES AR 135 P 37 QRSd 81 QRS 44 QT 359 T 14 QTc 394 Conclusion SINUS RHYTHM NONSPECIFIC T-WAVE ABNORMALITY BORDERLINE ECG No STEMI Electronically signed by : SEYMOUR TORRES, 12/13/2024 06:37:35
--- NOTE | 2024-12-11 22:11 | [facility].EDGENADL ---
Discharge Plan Disposition Patient Disposition: Home, Self-Care Condition: Good Prescriptions Prescriptions: New ondansetron 4 mg tablet,disintegrating 4 mg PO Q6H PRN (Reason: nausea and vomiting) Qty: 10 0RF No Action epinephrine 0.3 mg/0.3 mL auto-injector 0.3 mg IM Q10M PRN (Reason: anaphylaxis) Qty: 2 0RF Rx Instructions: for 2 doses topiramate [Topamax] 50 mg Tablet 50 mg PO BID Vitamin D (with calcium) 77-400 mg-unit Tablet 1 tab PO DAILY omeprazole 20 mg Tablet,Delayed Release (Dr/Ec) 20 mg PO BID duloxetine 40 mg Capsule, Delayed Rel Sprinkle 40 mg PO BID Referrals Follow up/Referrals: Provider,Referral, MD [Primary Care Provider, Medical] - See instructions Activity Restrictions/Add. Instructions Additional Instructions/Restrictions: You were evaluated in the ER and are believed to be appropriate for discharge at this time. Take the prescribed ondansetron (Zofran) if needed for nausea or vomiting. Drink plenty of water and get plenty of rest. Make an appointment with your primary care doctor for reevaluation in 2 to 3 days. Return to the ER with any new, worsening, or otherwise concerning symptoms. Clinical Impressions Clinical Impression: Migraine, Chest pain, Abdominal pain, Nausea & vomiting, Transaminitis Stand Alone Forms Stand Alone Forms: Work/School Release Print Language Print Language: Croatian Discharge ED Provider: Keshia Godinez General Adult HPI <Mindy Cabrera DO - Last Filed: 12/11/24 23:52> General Chief complaint: Headache Stated complaint: Migraine,vomiting,nose bleed Time Seen by Provider: 12/11/24 21:24 Mode of Arrival: Ambulatory Source of Information: Patient Description of Symptoms (Recalled from ER Triage Doc. by RN): pt presents to the Ed d/t complaints of Headache and migraine starting earlier today. pt states also sharp pain in ear and had nose bleed earlier lasting 2-3 mins. pt is alert and has chelsea throwing up all day. History of Present Illness HPI narrative: This patient is a 24-year-old female with a history of obesity and migraines presenting to the emergency department for evaluation concern for migraine. Patient states that she woke up with a headache this morning that turned into a migraine, and after that she developed chest pain, nausea, and vomiting. The pain started before the vomiting. She has been vomiting all day. Emesis is nonbloody nonbilious. Her chest pain is midsternal. She states that this is new compared to prior migraines. No recent fever, cough, congestion, changes to bowel movements, or urinary symptoms. On review of systems, she does note some mild generalized abdominal pain. She has sharp pain in both of her ears as well as a nosebleed earlier that lasted 2 to 3 minutes. Related Data Home Medications ?Medication ?Instructions ?Recorded ?Confirmed calcium phosphate,dibasic 77 1 tab PO DAILY 06/16/24 06/16/24 mg-vitamin D3 400 unit tablet duloxetine 40 mg capsule,delayed 40 mg PO BID 06/16/24 06/16/24 release sprinkle omeprazole 20 mg tablet,delayed 20 mg PO BID 06/16/24 06/16/24 release topiramate 50 mg tablet (Topamax) 50 mg PO BID 06/16/24 06/16/24 Previous Rx's ?Medication ?Instructions ?Recorded epinephrine 0.3 mg/0.3 mL 0.3 mg (0.3 mL) IM Q10M PRN 02/03/24 injection, auto-injector anaphylaxis #2 ea ondansetron 4 mg disintegrating 4 mg PO Q6H PRN nausea and 12/12/24 tablet vomiting #10 tabs Allergies Allergy/AdvReac Type Severity Reaction Status Date / Time cinnamon Allergy Anaphylaxis Verified 02/03/24 11:57 raspberry Allergy Anaphylaxis Verified 02/03/24 11:57 sulfamethoxazole (From Allergy Unknown Verified 02/03/24 11:57 Bactrim) allergy reaction trimethoprim (From Bactrim) Allergy Unknown Verified 02/03/24 11:57 allergy reaction PFSH <Mindy Cabrera DO - Last Filed: 12/11/24 23:52> [facility] Disclaimer: The information contained in this section may have been updated after the patient was seen, as this information can be updated by other users. Social History Smoking Status: Never smoker alcohol intake: never current occupational status: employed Travel in the last 8 weeks?: None Have you lived/traveled outside [place] in past 30 days?: No Contact w/someone who lives/traveled outside US past 30 days?: No Exposure to someone with infectious disease in past 14 days?: No Do you have a fever (greater than 100.4 F or 38 C)?: No Have you tested positive for COVID-19?: No Exposed to someone with COVID-19 in past 14 days?: No Do you have a sore throat?: No Do you have a cough?: No Do you have any weakness?: No Do you have any diarrhea?: No Are you experiencing any unusual bleeding?: No Do you have any muscle aches/pain?: No Do you have any abdominal pain?: No Are you experiencing loss of taste or smell?: No <Mindy Cabrera DO - Last Filed: 12/11/24 23:52> ROS Obtained: Yes All systems reviewed & no additional complaints except as documented Physical Exam <Mindy Cabrera DO - Last Filed: 12/11/24 23:52> General General appearance: alert and in no apparent distress Head Head exam: atraumatic and normocephalic Eye Eye exam: Present normal appearance, PERRL and EOMI ENT ENT exam: Present normal exam, normal oropharynx, mucous membranes moist and normal external ear exam Neck Neck exam: Present normal inspection, full ROM and trachea midline; Absent tenderness Chest Chest inspection: Present normal inspection and symmetric chest wall rise; Absent tenderness Respiratory Respiratory exam: Present normal lung sounds bilaterally; Absent respiratory distress, wheezes, stridor or accessory muscle use Cardiovascular Cardiovascular exam: Present regular rate and normal rhythm Abdominal Exam Abdominal exam: Present soft; Absent distention, tenderness or guarding Extremities Exam Extremities exam: Present normal inspection, full ROM and normal capillary refill; Absent tenderness or edema Back Exam Back exam: Present normal inspection and full ROM; Absent tenderness Neurological Exam Neurological exam: Present alert, oriented X3, CN II-XII intact and normal gait; Absent motor sensory deficit Psychiatric Psychiatric exam: Present normal affect and normal mood Skin Skin exam: Present warm and dry Medical Decision Making <Mindy Cabrera DO - Last Filed: 12/11/24 23:52> Medical Records Medical records reviewed: Yes I reviewed the patient's medical records. Screening: Per USPSTF and CDC recommendations, given the prevalence of disease in our region, it is our hospital?s policy to screen for HIV and viral Hepatitis for all patients aged 18 and over and those with ongoing risk factors. Kenn Inquiry Pt receiving controlled substance: No Vital Signs: 12/11/24 21:10 12/11/24 21:20 12/11/24 21:40 Temperature 98.4 F Temperature Source Oral Pulse Rate 85 82 Pulse Rate [Right Radial] 98 H Respiratory Rate 16 Blood Pressure 141/95 H 132/98 H Blood Pressure [Right Arm] 153/100 H Blood Pressure Mean [Right Arm] 117 Blood Pressure Position Blood Pressure Position [Right Arm] Supine 02 Sat by Pulse Oximetry 98 97 99 Oxygen Delivery Method Room Air Room Air Room Air 12/11/24 22:00 12/11/24 22:30 12/12/24 01:10 Temperature 97.6 F Temperature Source Pulse Rate 81 74 89 Pulse Rate [Right Radial] Respiratory Rate 16 Blood Pressure 150/89 H 138/89 Blood Pressure [Right Arm] Blood Pressure Mean [Right Arm] Blood Pressure Position Supine Blood Pressure Position [Right Arm] 02 Sat by Pulse Oximetry 98 98 98 Oxygen Delivery Method Room Air 12/12/24 01:23 Temperature 97.6 F Temperature Source Oral Pulse Rate 89 Pulse Rate [Right Radial] Respiratory Rate 16 Blood Pressure 138/89 Blood Pressure [Right Arm] Blood Pressure Mean [Right Arm] Blood Pressure Position Supine Blood Pressure Position [Right Arm] 02 Sat by Pulse Oximetry Oxygen Delivery Method Room Air Lab Data Lab results reviewed: Yes I reviewed the patient's lab results. Lab Results 12/11/24 21:57: WBC 11.6 H, RBC 4.44, Hgb 13.4, Hct 41.5, MCV 93.5, MCH 30.2, MCHC 32.3, RDW 12.8, Plt Count 397, MPV 10.7 H, Neut % (Auto) 61.3, Lymph % (Auto) 32.9, [place] % (Auto) 5.1, Eos % (Auto) 0.1, Baso % (Auto) 0.3, Neut # (Auto) 7.1, Lymph # (Auto) 3.8, [place] # (Auto) 0.6, Eos # (Auto) 0.0, Baso # (Auto) 0.0, Sodium 138, Potassium 4.2, Chloride 105, Carbon Dioxide 27, Anion Gap 10.2, BUN 13, Creatinine 1.00, Estimated Creat Clear 71, Estimated GFR 68, Est GFR ( Amer) 82, Glucose 155 H, Calcium 9.9, Total Bilirubin 0.1 L, AST 92 H, ALT 155 H, Alkaline Phosphatase 84, Troponin I < 0.01, Total Protein 7.1, Albumin 4.3, Globulin 2.8, Albumin/Globulin Ratio 1.5, Lipase 59, Serum HCG, Qual Negative 12/11/24 22:01: SARS-CoV-2 (PCR) Not detected, Influenza A Untype (PCR) Not detected, Influenza Type B (PCR) Not detected 12/12/24 00:50: Troponin I < 0.01, Urine Color Yellow, Urine Appearance Cloudy, Urine pH 7.5, Ur Specific [place] 1.015, Urine Protein Negative, Urine Glucose (UA) Negative, Urine Ketones Negative, Urine Blood Negative, Urine Nitrate Negative, Urine Bilirubin Negative, Urine Urobilinogen 0.2, Ur Leukocyte Esterase Negative, Urine RBC None, Urine WBC None, Ur Squamous Epith Cells None, Amorphous Sediment 4+, Urine Bacteria None 12/11/24 21:57 12/11/24 21:57 Orders (Tests/Meds): ED MEDICATIONS Discontinued Medications Generic Name Dose Route Start Last Admin Trade Name Kirtq PRN Reason Stop Dose Admin Acetaminophen 1,000 mg 12/11/24 21:34 12/11/24 21:44 Acetaminophen 1,000mg/100ml Vial IV 12/11/24 21:35 1,000 mg ONCE ONE Administration Diphenhydramine HCl 25 mg 12/11/24 21:34 12/11/24 21:44 Diphenhydramine 50mg/Ml Vial IV 12/11/24 21:35 25 mg ONCE ONE Administration Famotidine 20 mg 12/11/24 23:48 12/12/24 00:20 Famotidine 20mg/2ml Vial IV 12/11/24 23:49 20 mg ONCE ONE Administration Lactated Ringer's 1,000 mls @ 999 mls/hr 12/11/24 21:34 12/11/24 21:44 Lactated Ringer's 1000 Ml Bag IV 12/11/24 22:34 999 mls/hr .Q1H1M ONE Administration Iopamidol 75 ml 12/12/24 00:13 12/12/24 00:13 Iopamidol-370 (76%);100ml Bottle IV 12/12/24 00:14 75 ml ONCE ONE Administration Ketorolac Tromethamine 15 mg 12/11/24 21:34 12/11/24 21:45 Ketorolac 30mg/Ml Vial IV 12/11/24 21:35 15 mg ONCE ONE Administration Metoclopramide HCl 10 mg 12/12/24 06:00 Metoclopramide Hcl 10mg/2ml Vial IVP 01/11/25 05:59 ACHS MIGUEL Morphine Sulfate 4 mg 12/11/24 23:49 12/12/24 00:20 Morphine 4mg/Ml Syringe IV 12/11/24 23:50 4 mg ONCE ONE Administration Sodium Chloride 8 ml 12/11/24 23:48 Sodium Chloride 0.9% 10ml Vial IV 01/10/25 23:47 NEEDED PRN dilute pepcid Sodium Chloride 10 ml 12/12/24 00:13 12/12/24 00:13 Sodium Chloride 0.9% 10ml Syr (Rad Only) IV 01/11/25 00:12 10 ml NEEDED PRN Administration Maintain IV Site ORDERS Category Date Time Status CT abdomen pelvis w con Stat Cat Scan 12/11/24 23:[address] head/brain wo con Stat Cat Scan 12/11/24 21:34 Completed POCUS Point of Care (ER Only) Stat Exams 12/11/24 23:52 Completed CBC w/Auto Diff [Complete Blood Count Auto Diff] Stat Lab 12/11/24 21:57 Completed CMP [Comprehensive Metabolic Panel] Stat Lab 12/11/24 21:57 Completed Lipase Stat Lab 12/11/24 21:57 Completed Rapid PCR Covid and Flu A/B Stat Lab 12/11/24 22:01 Completed Serum [HCG Qualitative, Serum] Stat Lab 12/11/24 21:57 Completed Trop I [Troponin I] Stat Lab 12/11/24 21:57 Completed Troponin I Q3H Lab 12/12/24 00:50 Completed UA [Urinalysis and Microscopic] Stat Lab 12/12/24 00:50 Completed ECG Data Tracing #1: I reviewed this ECG and interpreted as documented below: Normal sinus rhythm with a ventricular of [address] changes concerning for STEMI. Normal intervals ECG initial impression date: 12/11/24 ECG initial impression time: 22:11 Medical Decision Narrative: In summary, this patient is a 24-year-old female presenting to the Emergency Department for evaluation of migraine, chest pain, vomiting. Differential diagnoses considered include but are not limited to complex migraine, ACS, dysrhythmia, GERD, costochondritis, gastroenteritis among others. Ruling out the most morbid conditions drove assessment. It should be noted patient's history includes obesity and migraines which not at goal therapy. This complicates all aspects of care by increasing patient's risk for morbidity. I reviewed patient's past medical records and noted prior evaluation in the emergency department for migraine in the past. On exam, the patient sitting upright in no acute distress and is neurologically intact. Cardiopulmonary exam is normal. Vitals are normal cardiac telemetry. Abdominal exam is benign. She is PERC negative for pulmonary embolus. Workup included CBC, CMP, lipase, test, urinalysis, troponin, chest x-ray, EKG, CT head without contrast. She was given a bolus of IV fluids as well as IV Toradol, Reglan, Benadryl, and acetaminophen for symptomatic improvement. I independently interpreted CT head prior to the radiologist read and noted no intracranial hemorrhage or mass. Please see their read for final interpretation. Labs were obtained that demonstrated mild leukocytosis, mild transaminitis with normal bilirubin and lipase. Troponin negative. On reassessment, patient had no improvement after administration of interventions above. Given this, will give IV morphine and Pepcid. Her biggest complaint now is abdominal pain, whereas initially was headache.. CT abdomen pelvis with IV contrast was added onto workup. Patient care signed out to oncoming provider, Dr. Godinez, pending CT. <Keshia Godinez MD - Last Filed: 12/12/24 05:13> Vital Signs: 12/11/24 21:10 12/11/24 21:20 12/11/24 21:40 Temperature 98.4 F Temperature Source Oral Pulse Rate 85 82 Pulse Rate [Right Radial] 98 H Respiratory Rate 16 Blood Pressure 141/95 H 132/98 H Blood Pressure [Right Arm] 153/100 H Blood Pressure Mean [Right Arm] 117 Blood Pressure Position Blood Pressure Position [Right Arm] Supine 02 Sat by Pulse Oximetry 98 97 99 Oxygen Delivery Method Room Air Room Air Room Air 12/11/24 22:00 12/11/24 22:30 12/12/24 01:10 Temperature 97.6 F Temperature Source Pulse Rate 81 74 89 Pulse Rate [Right Radial] Respiratory Rate 16 Blood Pressure 150/89 H 138/89 Blood Pressure [Right Arm] Blood Pressure Mean [Right Arm] Blood Pressure Position Supine Blood Pressure Position [Right Arm] 02 Sat by Pulse Oximetry 98 98 98 Oxygen Delivery Method Room Air 12/12/24 01:23 Temperature 97.6 F Temperature Source Oral Pulse Rate 89 Pulse Rate [Right Radial] Respiratory Rate 16 Blood Pressure 138/89 Blood Pressure [Right Arm] Blood Pressure Mean [Right Arm] Blood Pressure Position Supine Blood Pressure Position [Right Arm] 02 Sat by Pulse Oximetry Oxygen Delivery Method Room Air Lab Data Lab Results 12/11/24 21:57: WBC 11.6 H, RBC 4.44, Hgb 13.4, Hct 41.5, MCV 93.5, MCH 30.2, MCHC 32.3, RDW 12.8, Plt Count 397, MPV 10.7 H, Neut % (Auto) 61.3, Lymph % (Auto) 32.9, [place] % (Auto) 5.1, Eos % (Auto) 0.1, Baso % (Auto) 0.3, Neut # (Auto) 7.1, Lymph # (Auto) 3.8, [place] # (Auto) 0.6, Eos # (Auto) 0.0, Baso # (Auto) 0.0, Sodium 138, Potassium 4.2, Chloride 105, Carbon Dioxide 27, Anion Gap 10.2, BUN 13, Creatinine 1.00, Estimated Creat Clear 71, Estimated GFR 68, Est GFR ( Amer) 82, Glucose 155 H, Calcium 9.9, Total Bilirubin 0.1 L, AST 92 H, ALT 155 H, Alkaline Phosphatase 84, Troponin I < 0.01, Total Protein 7.1, Albumin 4.3, Globulin 2.8, Albumin/Globulin Ratio 1.5, Lipase 59, Serum HCG, Qual Negative 12/11/24 22:01: SARS-CoV-2 (PCR) Not detected, Influenza A Untype (PCR) Not detected, Influenza Type B (PCR) Not detected 12/12/24 00:50: Troponin I < 0.01, Urine Color Yellow, Urine Appearance Cloudy, Urine pH 7.5, Ur Specific [place] 1.015, Urine Protein Negative, Urine Glucose (UA) Negative, Urine Ketones Negative, Urine Blood Negative, Urine Nitrate Negative, Urine Bilirubin Negative, Urine Urobilinogen 0.2, Ur Leukocyte Esterase Negative, Urine RBC None, Urine WBC None, Ur Squamous Epith Cells None, Amorphous Sediment 4+, Urine Bacteria None Orders (Tests/Meds): ED MEDICATIONS Discontinued Medications Generic Name Dose Route Start Last Admin Trade Name Juan Carlos PRN Reason Stop Dose Admin Acetaminophen 1,000 mg 12/11/24 21:34 12/11/24 21:44 Acetaminophen 1,000mg/100ml Vial IV 12/11/24 21:35 1,000 mg ONCE ONE Administration Diphenhydramine HCl 25 mg 12/11/24 21:34 12/11/24 21:44 Diphenhydramine 50mg/Ml Vial IV 12/11/24 21:35 25 mg ONCE ONE Administration Famotidine 20 mg 12/11/24 23:48 12/12/24 00:20 Famotidine 20mg/2ml Vial IV 12/11/24 23:49 20 mg ONCE ONE Administration Lactated Ringer's 1,000 mls @ 999 mls/hr 12/11/24 21:34 12/11/24 21:44 Lactated Ringer's 1000 Ml Bag IV 12/11/24 22:34 999 mls/hr .Q1H1M ONE Administration Iopamidol 75 ml 12/12/24 00:13 12/12/24 00:13 Iopamidol-370 (76%);100ml Bottle IV 12/12/24 00:14 75 ml ONCE ONE Administration Ketorolac Tromethamine 15 mg 12/11/24 21:34 12/11/24 21:45 Ketorolac 30mg/Ml Vial IV 12/11/24 21:35 15 mg ONCE ONE Administration Metoclopramide HCl 10 mg 12/12/24 06:00 Metoclopramide Hcl 10mg/2ml Vial IVP 01/11/25 05:59 ACHS MIGUEL Morphine Sulfate 4 mg 12/11/24 23:49 12/12/24 00:20 Morphine 4mg/Ml Syringe IV 12/11/24 23:50 4 mg ONCE ONE Administration Sodium Chloride 8 ml 12/11/24 23:48 Sodium Chloride 0.9% 10ml Vial IV 01/10/25 23:47 NEEDED PRN dilute pepcid Sodium Chloride 10 ml 12/12/24 00:13 12/12/24 00:13 Sodium Chloride 0.9% 10ml Syr (Rad Only) IV 01/11/25 00:12 10 ml NEEDED PRN Administration Maintain IV Site ORDERS Category Date Time Status CT abdomen pelvis w con Stat Cat Scan 12/11/24 23:[address] head/brain wo con Stat Cat Scan 12/11/24 21:34 Completed POCUS Point of Care (ER Only) Stat Exams 12/11/24 23:52 Completed CBC w/Auto Diff [Complete Blood Count Auto Diff] Stat Lab 12/11/24 21:57 Completed CMP [Comprehensive Metabolic Panel] Stat Lab 12/11/24 21:57 Completed Lipase Stat Lab 12/11/24 21:57 Completed Rapid PCR Covid and Flu A/B Stat Lab 12/11/24 22:01 Completed Serum [HCG Qualitative, Serum] Stat Lab 12/11/24 21:57 Completed Trop I [Troponin I] Stat Lab 12/11/24 21:57 Completed Troponin I Q3H Lab 12/12/24 00:50 Completed UA [Urinalysis and Microscopic] Stat Lab 12/12/24 00:50 Completed Medical Decision Narrative: In summary, this patient is a 24-year-old female presenting to the Emergency Department for evaluation of migraine, chest pain, vomiting. Differential diagnoses considered include but are not limited to complex migraine, ACS, dysrhythmia, GERD, costochondritis, gastroenteritis among others. Ruling out the most morbid conditions drove assessment. It should be noted patient's history includes obesity and migraines which not at goal therapy. This complicates all aspects of care by increasing patient's risk for morbidity. I reviewed patient's past medical records and noted prior evaluation in the emergency department for migraine in the past. On exam, the patient sitting upright in no acute distress and is neurologically intact. Cardiopulmonary exam is normal. Vitals are normal cardiac telemetry. Abdominal exam is benign. She is PERC negative for pulmonary embolus. Workup included CBC, CMP, lipase, test, urinalysis, troponin, chest x-ray, EKG, CT head without contrast. She was given a bolus of IV fluids as well as IV Toradol, Reglan, Benadryl, and acetaminophen for symptomatic improvement. I independently interpreted CT head prior to the radiologist read and noted no intracranial hemorrhage or mass. Please see their read for final interpretation. Labs were obtained that demonstrated mild leukocytosis, mild transaminitis with normal bilirubin and lipase. Troponin negative. On reassessment, patient had no improvement after administration of interventions above. Given this, will give IV morphine and Pepcid. Her biggest complaint now is abdominal pain, whereas initially was headache.. CT abdomen pelvis with IV contrast was added onto workup. Patient care signed out to oncoming provider, Dr. Godinze, pending CT. Godinez: Upon my assumption of care patient is stable and resting much more comfortably. CT was pending. I agree with the assessment and plan from Dr. Cabrera. CT abdomen pelvis personally interpreted does not demonstrate acute intra-abdominal pathology, specifically there is no obvious right upper quadrant pathology. On reassessment patient states she feels completely better. She has no persistent symptoms at this time. I believe she is appropriate for discharge with outpatient follow-up. Patient is comfortable with this plan. Zofran prescribed. Patient was given instructions on symptomatic monitoring and management, follow up instructions including to discuss her symptoms with her PCP and to recheck liver labs at that time, and return precautions for the emergency department. Patient indicated understanding and was discharged in stable condition. Critical Care <Mindy Cabrera, DO - Last Filed: 12/11/24 23:52> Critical Care Time Critical Care Time: No
[2024-12-11 22:16] LABS: Coronavirus 19, PCR Not Detected (NotDetected); Influenza A, PCR Not Detected (NotDetected); Influenza B, PCR Not Detected (NotDetected)
[2024-12-11 22:19] LABS: Hematocrit 41.5 % (37.0-47.0); Hemoglobin 13.4 g/dL (12.2-16.2); Immature Granulocytes % 0.3 %; Mean Corpuscular HGB Conc 32.3 g/dL (31.8-35.4); Mean Corpuscular Hemoglobin 30.2 pg (27.0-31.2); Mean Corpuscular Volume 93.5 fl (81-99); Nucleated Red Blood Cells % 0 %; Platelet Count 397 K/mm3 (142-424); Red Blood Count 4.44 M/mm3 (4.20-5.40); Red Cell Distribution Width-SD 44.1 fL; White Blood Count 11.6 K/mm3 (4.8-10.8)
[2024-12-11 22:23] LABS: Alanine Aminotransferase 155 U/L (12-78); Albumin Level 4.3 g/dl (3.5-5.0); Albumin/Globulin Ratio 1.5 (1.1-1.8); Alkaline Phosphatase 84 U/L (38-126); Anion Gap 10.2 mEq/L (5-15); Aspartate Amino Transferase 92 U/L (14-36); Blood Urea Nitrogen 13 mg/dl (7-17); Calcium 9.9 mg/dl (8.4-10.2); Carbon Dioxide 27 mmol/L (22.0-30.0); Chloride 105 mmol/L (98-107); Creatinine Clearance Estimated 71 mL/min (50-200); Creatinine,Serum 1.00 mg/dl (0.52-1.04); Estimated Glomerular Filt Rate 68 ml/min (>60); GFR (African American) 82 ML/MIN (>60); Globulin 2.8 g/dL (1.3-3.2); Glucose 155 mg/dl (74-100); Lipase 59 U/L (23-300); Potassium 4.2 mmoL/L (3.5-5.1); Sodium 138 mmol/L (136-145); Total Protein,Serum 7.1 g/dl (6.3-8.2)
[2024-12-11 22:26] LABS: Bilirubin,Total 0.1 mg/dl (0.2-1.3)
[2024-12-11 22:30] VITALS: BP 150/89; PULSE 74; O2SAT 98
[2024-12-11 22:33] LABS: Troponin I < 0.01 ng/ml (0.00-0.034)
[2024-12-11 22:36] LABS: HCG Qualitative, Serum Negative (Negative)
--- NOTE | 2024-12-11 23:48 | CT_ITS ---
PROCEDURE INFORMATION: Exam: CT Abdomen And Pelvis With Contrast Exam date and time: 12/12/2024 12:09 AM Age: 24 years old Clinical indication: Abdominal pain; Additional info: Ruq pain/n/v transaminitis TECHNIQUE: Imaging protocol: Computed tomography of the abdomen and pelvis with contrast. Radiation optimization: All CT scans at this facility use at least one of these dose optimization techniques: automated exposure control; mA and/or kV adjustment per patient size (includes targeted exams where dose is matched to clinical indication); or iterative reconstruction. Contrast material: ISOVUE; Contrast volume: 75 ml; Contrast route: IV; COMPARISON: No relevant prior studies available. FINDINGS: Diaphragm: There is a small hiatal hernia. Liver: There is diffuse low attenuation throughout the liver consistent with fatty infiltration. No masses. The liver is enlarged, measuring 21.6 cm. Gallbladder and biliary ducts: Normal. No calcified stones. No ductal dilation. Pancreas: Normal. No ductal dilation. Spleen: Normal. No splenomegaly. Adrenal glands: Normal. No mass. Kidneys and ureters: Normal. No hydronephrosis. Stomach and bowel: Unremarkable. No obstruction. No mucosal thickening. Appendix: No evidence of appendicitis. Intraperitoneal space: Unremarkable. No free air. No significant fluid collection. Vasculature: Unremarkable. No abdominal aortic aneurysm. Lymph nodes: Unremarkable. No enlarged lymph nodes. Urinary bladder: Unremarkable as visualized. Reproductive: Unremarkable as visualized. Bones/joints: Unremarkable. No acute fracture. Soft tissues: Unremarkable. IMPRESSION: Fatty hepatomegaly. Small hiatal hernia.
[2024-12-12] MEDS: SODIUM CHLORIDE 0.9% 10ML SYR (RAD ONLY) 10 ML IV (00:13)
[2024-12-12] MEDS: IOPAMIDOL-370 (76%);100ML BOTTLE 75 ML IV (00:13)
[2024-12-12] MEDS: MORPHINE 4MG/ML SYRINGE 4 MG IV (00:20)
[2024-12-12] MEDS: FAMOTIDINE 20MG/2ML VIAL 20 MG IV (00:20)
[2024-12-12 00:56] LABS: Microscopic, Urine URINE MICROSCOPIC (MICROSCOPIC)
[2024-12-12 00:58] LABS: Bilirubin,Urine Negative (Negative); Color,Urine YELLOW (Yellow); Glucose,Urine (UA) Negative (Negative); Ketones,Urine Negative (Negative); Leukocyte Esterase,Urine Negative (Negative); PH,Urine 7.5 (5.0-8.5); Protein,Urine Negative (Negative); Specific Gravity, Urine 1.015 (1.005-1.030); Urobilinogen,Urine 0.2 EU/dl (0.2)
[2024-12-12 01:10] VITALS: BP 138/89; PULSE 89; RESP 16; TEMP 36.4; O2SAT 98
[2024-12-12 01:11] LABS: Amorphous Sediment,Urine 4+ /lpf
[2024-12-12 01:23] VITALS: BP 138/89; PULSE 89; RESP 16; TEMP 36.4; O2SAT 98
[2024-12-12 01:43] LABS: Troponin I < 0.01 ng/ml (0.00-0.034)
== END 2024-12-12 01:24 | disposition home or self-care (01) ==
PROVIDERS: Emergency Medicine; Emergency Provider Emergency Medicine
DX: G43.909 Migraine, unspecified, not intractable, without status migrainosus (principal); R07.9 Chest pain, unspecified; R10.9 Unspecified abdominal pain; R74.01 Elevation of levels of liver transaminase levels; R11.2 Nausea with vomiting, unspecified
CPT/HCPCS: 70450; 74177; 80053; 81001; 83690; 84484; 84703; 85025; 87636; 93005; 96361; 96374; 96375; 99285; J0131; J1200; J1885; J2270; J7120; Q9967